=== PATIENT | female | born 1960 | race Caucasian/White ===

== ENCOUNTER → 2018-02-23 | Outpatient (CLI) | payer MEDICAID ==
[2018-02-23 14:56] LABS: T4, Free (Free Thyroxine) 0.79 ng/dL (0.78-2.19)
== END | disposition home or self-care (01) ==
LOC: LABWHC1 10:36
PROVIDERS: ATTEND Internal Medicine
DX: E89.0 Postprocedural hypothyroidism (principal)
CPT/HCPCS: 36415; 84439; 84443

== ENCOUNTER → 2018-02-28 | Outpatient (CLI) | payer MEDICAID ==
--- NOTE | 2018-03-01 14:31 | MM ---
Reason for exam: follow-up at short interval from prior study. Last mammogram was performed 13 years and 5 months ago. History: Patient has history of breast cancer at age 44 and has history of other cancer at age 44. Family history of premenopausal breast cancer in sister at age 48 and breast cancer in mother at age 68. Stereotactic core biopsy of the left breast, October 03, 2004. Malignant stereotactic core biopsy of the left breast, October 03, 2004. Malignant stereotactic core biopsy of the left breast, October 03, 2004. Lumpectomy of the left breast, 2004. Chemotherapy, 2004. Radiation therapy of the left breast, 2004. 3 core biopsies of the left breast. Took hormonal contraceptives for 24 years. Took antineoplastic for 5 years beginning at age 44. Physical Findings: Nurse did not find any significant physical abnormalities on exam. MG 3D Diag Mammo W/Cad RT CC and MLO view(s) were taken of the right breast. Prior study comparison: August 25, 2017, mammogram. August 24, 2016, mammogram. July 18, 2015, mammogram. There are scattered fibroglandular densities. Focal asymmetry central 6 o'clock appear more defined. Upper outer quadrant nodular focal asymmetry is also more defined though not well seen on CC view. Ultrasound recommended 5-7 o'clock upper outer quadrant. If not seen by ultrasound, stereotactic biopsy may be indicated, particularly of the 6 o'clock asymmetry. These results were verbally communicated with the patient and result sheet given to the patient on 02/28/18. ASSESSMENT: Incomplete: need additional imaging evaluation, BI-RAD 0 RECOMMENDATION: Ultrasound of the right breast. (5-7 o'clock and upper outer quadrant)
== END ==
LOC: RADMAMWWP 07:42
PROVIDERS: ATTEND Obstetrics & Gynecology
DX: R92.8 Other abnormal and inconclusive findings on diagnostic imaging of breast (principal)
CPT/HCPCS: 77061; 77065

== ENCOUNTER → 2018-03-02 | Day surgery (SDC) | payer MEDICAID ==
[2018-03-02 07:25] VITALS: RESP 16; BMI 41.9
[2018-03-02 09:53] VITALS: BP 120/84; PULSE 68; TEMP 97.6
--- NOTE | 2018-03-02 16:20 | USB ---
EXAMINATION TYPE: US biopsy breast VAD RT DATE OF EXAM: 03/02/2018 CLINICAL HISTORY: R92.8 abnormal mammogram. Abnormal ultrasound TECHNIQUE: Ultrasound guided core biopsy of right breast. COMPARISON: Ultrasound 03/01/2018 FINDINGS: The procedure of ultrasound guided core biopsy was explained to the patient. Benefits, alternatives, and risks were discussed. An informed consent was then obtained. A timeout was performed. The patient was placed in supine positioning for imaging and for the procedure. The overlying skin was prepped and draped in usual sterile fashion. The 11:00 position lesion was localized. Lidocaine buffered with bicarbonate was used as anesthetic into the skin and subcutaneous tissue up to area of concern in the right breast. A radha was made with surgical scalpel. Under ultrasound guidance, a 12-gauge vacuum assisted biopsy gun device was used to obtain 4 core samples. There appear to be collapse of the lesion with the first successful pass suggesting this may be a cyst. Additional biopsy passes were made. Following this, a coil biopsy clip was left in lesion. The patient was placed in supine positioning for imaging and for the procedure. The overlying skin was prepped and draped in usual sterile fashion. The 7:00 position lesion was localized. Lidocaine buffered with bicarbonate was used as anesthetic into the skin and subcutaneous tissue up to area of concern in the right breast. A radha was made with surgical scalpel. Under ultrasound guidance, a 12-gauge vacuum assisted biopsy gun device was used to obtain 4 core samples. There appear to be collapse of the lesion with the first successful pass suggesting this may be a cyst. Additional biopsy passes were made. Following this, a ribbon biopsy clip was left in lesion. The patient tolerated the procedure well without any immediate complication. Discharge instructions were discussed with the patient. The patient will follow- up with her surgeon for results. The patient was kept in the radiology department for short stay after the procedure and then discharged home in stable condition. Postprocedure mammogram was performed. Core marker placement appears as expected. IMPRESSION: 1. Successful ultrasound-guided core biopsy 2 locations. Recommendations: 1. Recommendations are pending pathology results. Pathology Results: Benign A. BREAST, RIGHT, ELEVEN O'CLOCK, ULTRASOUND GUIDED CORE BIOPSY: Fibrocystic changes including cysts, fibrosis and apocrine metaplasia. B. BREAST, RIGHT, SEVEN O'CLOCK, ULTRASOUND GUIDED CORE BIOPSY: Fibrocystic changes including cysts, fibrosis, sclerosing adenosis, apocrine metaplasia, and focal usual type ductal hyperplasia with adjacent foreign body reaction suggestive of duct rupture. Recommendation Follow up ultrasound of the right breast in 6 months. RUIZ
--- NOTE | 2018-03-02 16:21 | MM ---
EXAMINATION TYPE: US biopsy breast VAD RT DATE OF EXAM: 03/02/2018 CLINICAL HISTORY: R92.8 abnormal mammogram. Abnormal ultrasound TECHNIQUE: Ultrasound guided core biopsy of right breast. COMPARISON: Ultrasound 03/01/2018 FINDINGS: The procedure of ultrasound guided core biopsy was explained to the patient. Benefits, alt ernatives, and risks were discussed. An informed consent was then obtained. A timeout was performed. The patient was placed in supine positioning for imaging and for the procedure. The overlying skin w as prepped and draped in usual sterile fashion. The 11:00 position lesion was localized. Lidocaine b uffered with bicarbonate was used as anesthetic into the skin and subcutaneous tissue up to area of c oncern in the right breast. A radha was made with surgical scalpel. Under ultrasound guidance, a 12-gauge vacuum assisted biopsy gun device was used to obtain 4 core ying ples. There appear to be collapse of the lesion with the first successful pass suggesting this may b e a cyst. Additional biopsy passes were made. Following this, a coil biopsy clip was left in lesion. The patient was placed in supine positioning for imaging and for the procedure. The overlying skin w as prepped and draped in usual sterile fashion. The 7:00 position lesion was localized. Lidocaine bu ffered with bicarbonate was used as anesthetic into the skin and subcutaneous tissue up to area of co ncern in the right breast. A radha was made with surgical scalpel. Under ultrasound guidance, a 12-gauge vacuum assisted biopsy gun device was used to obtain 4 core ying ples. There appear to be collapse of the lesion with the first successful pass suggesting this may b e a cyst. Additional biopsy passes were made. Following this, a ribbon biopsy clip was left in lesion . The patient tolerated the procedure well without any immediate complication. Discharge instructions were discussed with the patient. The patient will follow-up with her surgeon for results. The patient was kept in the radiology department for short stay after the procedure and then discharged home in stable condition. Postprocedure mammogram was performed. Core marker placement appears as expected. IMPRESSION: 1. Successful ultrasound-guided core biopsy 2 locations. Recommendations: 1. Recommendations are pending pathology results.
== END | disposition home or self-care (01) ==
LOC: RADUSWWP 06:59
PROVIDERS: ATTEND Surgery
DX: N60.31 Fibrosclerosis of right breast (principal); N60.01 Solitary cyst of right breast; N60.21 Fibroadenosis of right breast; N60.81 Other benign mammary dysplasias of right breast; N60.91 Unspecified benign mammary dysplasia of right breast; Z85.3 Personal history of malignant neoplasm of breast; Z92.3 Personal history of irradiation; Z92.21 Personal history of antineoplastic chemotherapy
CPT/HCPCS: 88305; 77065; 19083; 19084; A4648; J2001

== ENCOUNTER → 2018-04-06 | Outpatient (CLI) | payer MEDICAID ==
[2018-04-06 19:36] LABS: T4, Free (Free Thyroxine) 1.5 ng/dL (0.80-1.80)
== END | disposition home or self-care (01) ==
LOC: LABWHC1 13:29
PROVIDERS: ATTEND Internal Medicine
DX: E89.0 Postprocedural hypothyroidism (principal)
CPT/HCPCS: 36415; 84439; 84443

== ENCOUNTER → 2018-09-22 | Outpatient (CLI) | payer MEDICAID ==
[2018-09-22 11:13] LABS: T4, Free (Free Thyroxine) 1.4 ng/dL (0.80-1.80)
[2018-09-22 11:22] LABS: Albumin 4.1 g/dL (3.80-4.90); Albumin/Globulin Ratio 2.28 (1.60-3.17); Anion Gap 15.5 mmol/L (4.00-12.00); Calcium 9.5 mg/dL (8.7-10.3); Carbon Dioxide 28.5 mmol/L (21.6-31.8); Globulin 1.8 g/dL (1.6-3.3); LDL Cholesterol,Calculated 92.4 mg/dL (0.0-131.0); Potassium 4.7 mmol/L (3.5-5.5); Total Bilirubin 0.6 mg/dL (0.2-1.2); Total Protein 5.9 g/dL (6.2-8.2); VLDL Calculation 28.6 mg/dL (5.00-40.00)
[2018-09-22 17:21] LABS: Thyroglobulin <0.20 ng/mL (1.60-59.90)
== END | disposition home or self-care (01) ==
LOC: LABWHC1 06:32
DX: C73 Malignant neoplasm of thyroid gland (principal); E78.5 Hyperlipidemia, unspecified; E89.0 Postprocedural hypothyroidism
CPT/HCPCS: 36415; 80053; 80061; 84432; 84439; 84443; 86800

== ENCOUNTER → 2018-09-22 | Outpatient (CLI) | payer MEDICAID ==
--- NOTE | 2018-09-22 09:47 | USB ---
Reason for exam: follow-up at short interval from prior study. History: Patient has history of breast cancer at age 44 and has history of other cancer at age 44. Family history of premenopausal breast cancer in sister at age 48 and breast cancer in mother at age 68. Benign US biopsy breast VAD RT of the right breast, March 02, 2018. Benign US biopsy breast add'l VAD RT of the right breast, March 02, 2018. Stereotactic core biopsy of the left breast, October 03, 2004. Malignant stereotactic core biopsy of the left breast, October 03, 2004. Malignant stereotactic core biopsy of the left breast, October 03, 2004. Lumpectomy of the left breast, 2004. Chemotherapy, 2004. Radiation therapy of the left breast, 2004. 3 core biopsies of the left breast. Took hormonal contraceptives for 24 years. Took antineoplastic for 5 years beginning at age 44. Physical Findings: Nurse did not find any significant physical abnormalities on exam. US Breast RT Right complete breast ultrasound includes all four quadrants, the retroareolar region and axilla. Finding demonstrates a 0.4 x 0.2 x 0.5cm lesion too small to characterize at 7 o'clock and a 0.3 x 0.3 x 1.0cm cystic cluster at 11 o'clock. These results were verbally communicated with the patient and result sheet given to the patient on 09/22/18. ASSESSMENT: Benign, BI-RAD 2 RECOMMENDATION: Follow-up diagnostic mammogram of both breasts. (due now) Ultrasound of the right breast in 6 months.
== END | disposition home or self-care (01) ==
LOC: RADUSWWP 06:54
PROVIDERS: ATTEND Surgery
DX: R92.8 Other abnormal and inconclusive findings on diagnostic imaging of breast (principal)

== ENCOUNTER → 2018-10-11 | Outpatient (CLI) | payer MEDICAID ==
--- NOTE | 2018-10-11 08:06 | MM ---
Reason for exam: additional evaluation requested from prior study. Last mammogram was performed 7 months ago. History: Patient is postmenopausal, has history of breast cancer at age 44, and has history of other cancer at age 44. Family history of premenopausal breast cancer in sister at age 48 and breast cancer in mother at age 68. Benign US biopsy breast VAD RT of the right breast, March 02, 2018. Benign US biopsy breast add'l VAD RT of the right breast, March 02, 2018. Stereotactic core biopsy of the left breast, October 03, 2004. Malignant stereotactic core biopsy of the left breast, October 03, 2004. Malignant stereotactic core biopsy of the left breast, October 03, 2004. Lumpectomy of the left breast, 2004. Chemotherapy, 2004. Radiation therapy of the left breast, 2004. 3 core biopsies of the left breast. Took hormonal contraceptives for 24 years. Took antineoplastic for 5 years beginning at age 44. Physical Findings: Nurse did not find any significant physical abnormalities on exam. MG 3D Diag Mammo W/Cad SHREYA Bilateral CC and MLO view(s) were taken. XCCL view(s) were taken of the left breast. Prior study comparison: March 02, 2018, right breast MG diagnostic mammo RT wo CAD. February 28, 2018, right breast MG 3d diag mammo w/cad RT. August 25, 2017, mammogram. August 24, 2016, mammogram. July 18, 2015, mammogram. The breast tissue is heterogeneously dense. This may lower the sensitivity of mammography. Benign appearing bilateral calcifications. Right biopsy markers noted. Left post therapy change. These results were verbally communicated with the patient and result sheet given to the patient on 10/11/18. ASSESSMENT: Benign, BI-RAD 2 RECOMMENDATION: Routine screening mammogram of both breasts in 1 year.
== END | disposition home or self-care (01) ==
LOC: RADMAMWWP 07:04
PROVIDERS: ATTEND Surgery
DX: R92.8 Other abnormal and inconclusive findings on diagnostic imaging of breast (principal)
CPT/HCPCS: 77062; 77066

== ENCOUNTER → 2018-12-22 | Outpatient (CLI) | payer MEDICAID ==
--- NOTE | 2018-12-22 10:00 | FL ---
EXAMINATION TYPE: FL barium swallow DATE OF EXAM: 12/22/2018 CLINICAL HISTORY: Dysphagia for approximately 1 year. History of thyroid carcinoma with thyroidectomy 14 years ago. The patient states she has reflux of solid foods. TECHNIQUE: A double contrast esophagram is performed utilizing air and barium. A total of 1 minute and 28 seconds of fluoroscopic time was utilized during procedure. 44 fluoroscopic images were saved. COMPARISON: None FINDINGS: There is an accumulation of contrast within an esophageal outpouching at the level of the l ower cervical spine. On imaging this appears posterior and midline and moderate in size. Accumulation of contrast is both on supine and prone imaging. The esophagus shows abnormal motility with tertiary contractions of the distal esophagus greater on upright and supine imaging. No distal esophageal str icture is seen and therefore findings likely relate to presbyesophagus. There is normal emptying into the stomach. No evidence of hiatal hernia noted. Mild gastroesophageal reflux was seen during real time performance of this study. IMPRESSION: 1. Moderate sized fingers diverticulum likely accounting for this patient's clinical symptoms. 2. Tertiary contractions of the distal esophagus most commonly related to presbyesophagus. 3. Mild gastroesophageal reflux.
== END | disposition home or self-care (01) ==
LOC: RADUSWWP 07:53
PROVIDERS: ATTEND Internal Medicine
DX: K21.9 Gastro-esophageal reflux disease without esophagitis (principal); K22.8 Other specified diseases of esophagus
CPT/HCPCS: 74220

== ENCOUNTER → 2019-01-05 | Outpatient (CLI) | payer MEDICAID ==
[2019-01-05 13:57] LABS: Basophils # (A) 0.1 k/uL (0-0.2); Basophils % (A) 1 %; Eosinophils # (A) 0.8 k/uL (0-0.7); Eosinophils % (A) 9 %; HGB 13.9 gm/dL (11.4-16.0); Lymphocytes # (A) 2.4 k/uL (1.0-4.8); Lymphocytes % (A) 27 %; MCH 28.3 pg (25.0-35.0); MCHC 31.6 g/dL (31.0-37.0); MCV 89.7 fL (80.0-100.0); Monocytes # (A) 0.4 k/uL (0-1.0); Monocytes % (A) 5 %; Neutrophils # (A) 4.9 k/uL (1.3-7.7); Neutrophils % (A) 55 %; Platelet Count 211 k/uL (150-450); RDW 14.4 % (11.5-15.5); WBC 8.8 k/uL (3.8-10.6)
[2019-01-05 17:55] LABS: African American GFR (CKD) 110.7 (60.0-200.0); Anion Gap 4.9 mmol/L (4.00-12.00); Calcium 9.4 mg/dL (8.7-10.3); Carbon Dioxide 29.1 mmol/L (21.6-31.8); Potassium 4.4 mmol/L (3.5-5.5)
== END | disposition home or self-care (01) ==
LOC: LABWHC1 13:07
PROVIDERS: ATTEND Internal Medicine
DX: E87.0 Hyperosmolality and hypernatremia (principal); E03.9 Hypothyroidism, unspecified
CPT/HCPCS: 36415; 80048; 85025

== ENCOUNTER → 2019-03-23 | Outpatient (CLI) | payer MEDICAID ==
[2019-03-23 17:46] LABS: Chol/HDL Ratio 3.92; LDL Cholesterol,Calculated 113.6 mg/dL (0.0-131.0); VLDL Calculation 29.4 mg/dL (5.00-40.00)
== END | disposition home or self-care (01) ==
LOC: LABWHC1 08:20
PROVIDERS: ATTEND Internal Medicine
DX: E78.5 Hyperlipidemia, unspecified (principal)
CPT/HCPCS: 36415; 80061

== ENCOUNTER → 2019-05-01 | Outpatient (CLI) | payer MEDICAID ==
[2019-05-01 17:46] LABS: Appearance,Urine Clear (Clear); Basophils # (A) 0.1 k/uL (0-0.2); Basophils % (A) 1 %; Bilirubin,Urine Negative (Negative); Blood,Urine Negative (Negative); Color,Urine Yellow; Eosinophils # (A) 0.7 k/uL (0-0.7); Eosinophils % (A) 8 %; Glucose,Urine (UA) Negative (Negative); HCT 39.9 % (34.0-46.0); HGB 13.1 gm/dL (11.4-16.0); Ketones,Urine Negative (Negative); Leukocyte Esterase,Urine Negative (Negative); Lymphocytes # (A) 1.8 k/uL (1.0-4.8); Lymphocytes % (A) 22 %; MCH 28.6 pg (25.0-35.0); MCHC 32.7 g/dL (31.0-37.0); MCV 87.3 fL (80.0-100.0); Monocytes # (A) 0.4 k/uL (0-1.0); Monocytes % (A) 5 %; Neutrophils # (A) 5.2 k/uL (1.3-7.7); Neutrophils % (A) 63 %; Nitrite,Urine Negative (Negative); Platelet Count 205 k/uL (150-450); Protein,Urine Negative (Negative); RBC 4.57 m/uL (3.80-5.40); RDW 13.1 % (11.5-15.5); Specific Gravity,Urine 1.019 (1.001-1.035); Urobilinogen,Urine <2.0 mg/dL (<2.0); WBC 8.4 k/uL (3.8-10.6)
[2019-05-02 01:46] LABS: African American GFR (CKD) 116.4 (60.0-200.0); Albumin 3.9 g/dL (3.80-4.90); Albumin/Globulin Ratio 2.05 (1.60-3.17); Anion Gap 8.9 mmol/L (4.00-12.00); BUN/Creat Ratio 28.33 Ratio (12.00-20.00); Calcium 9.2 mg/dL (8.7-10.3); Carbon Dioxide 26.1 mmol/L (21.6-31.8); Globulin 1.9 g/dL (1.6-3.3); Potassium 4.5 mmol/L (3.5-5.5); Total Bilirubin 0.3 mg/dL (0.2-1.2); Total Protein 5.8 g/dL (6.2-8.2)
== END | disposition home or self-care (01) ==
LOC: LABWHC1 16:42
PROVIDERS: ATTEND Internal Medicine
DX: M62.81 Muscle weakness (generalized) (principal)
CPT/HCPCS: 36415; 80053; 81003; 82550; 84443; 85025

== ENCOUNTER → 2019-08-17 | Outpatient (CLI) | payer MEDICAID ==
--- NOTE | 2019-08-18 07:36 | XR ---
EXAMINATION TYPE: XR pelvis AP view DATE OF EXAM: 08/17/2019 CLINICAL HISTORY: Low back pain and pelvic pain TECHNIQUE: A single AP view of the pelvis is obtained. COMPARISON: None. FINDINGS: There is no acute fracture/dislocation evident in the pelvis. The hip and sacroiliac join ts appear symmetric and aligned. Mild femoral acetabular arthropathy with acetabular sclerosis bilat erally. The overlying soft tissue appears unremarkable. IMPRESSION: There is no acute fracture or dislocation in the pelvis. Mild arthropathy of the hips.
--- NOTE | 2019-08-18 07:38 | XR ---
EXAMINATION TYPE: XR spine complete AP and Lat DATE OF EXAM: 08/17/2019 COMPARISON: NONE HISTORY: Acute on chronic neck pain TECHNIQUE: Frontal and lateral views of the cervical spine were obtained FINDINGS: There is grade 1 anterolisthesis of C2 on C3 and minimal retrolisthesis of C4 and C5 and C5 on C6. Multilevel intervertebral disc space narrowing is seen with anterior osteophytes and multilev el uncovertebral hypertrophy. No abnormal prevertebral soft tissue swelling. Vertebral body heights a re maintained. No acute fracture identified. There is straightening of usual cervical lordosis. IMPRESSION: 1. No acute fracture of the cervical spine is seen. 2. Grade 1 anterolisthesis of C2 on C3 and minimal retrolisthesis of C4 and C5 and C5 and C6 are like ly on a degenerative basis. Overall moderate multilevel degenerative disc disease of the cervical spi ne. 3. Straightening of usual cervical lordosis could be on the basis of muscular strain/spasm or patient positioning.
== END | disposition home or self-care (01) ==
LOC: RAD 17:44
PROVIDERS: ATTEND Chiropractor
DX: M43.12 Spondylolisthesis, cervical region (principal); M50.30 Other cervical disc degeneration, unspecified cervical region; M12.852 Other specific arthropathies, not elsewhere classified, left hip; M12.851 Other specific arthropathies, not elsewhere classified, right hip
CPT/HCPCS: 72082; 72170

== ENCOUNTER 2019-08-21 09:15 | Emergency (ER) | payer MEDICAID ==
[2019-08-21] MEDS ORDERED: KETOROLAC 30 MG/ML 1 ML VIAL IM STA (09:40)
--- NOTE | 2019-08-21 09:45 | ED ---
General Adult HPI - General Chief complaint: Extremity Injury, Upper Stated complaint: fall, collar bone pain Time Seen by Provider: 08/21/19 09:22 Source: patient Mode of arrival: ambulatory Limitations: no limitations - History of Present Illness Initial comments: Patient is a 59-year-old female presenting to emergency Department with a chief complaint of clavicle pain. Patient states yesterday she was cleaning and standing on a chair when she lost balance due to her back pain and fall of the left side of her body. Patient denies any head trauma loss of consciousness. States she has pain in the left clavicle region. States there is some swelling in the region but denies any bony deformities. Denies any skin discoloration in the region as well. Also reports pain in the left shoulder with limited range of motion above 90 or pain. Does report taking aspirin with minimal improvement symptoms. She did have left rotator cuff surgery. Denies any numbness or tingling. Patient has no other complaints. - Related Data Home Medications Medication Instructions Recorded Confirmed Cetirizine HCl [Zyrtec] 10 mg PO DAILY 03/01/18 03/02/18 Cholecalciferol (Vitamin D3) 2,000 unit PO DAILY 03/01/18 03/02/18 [Vitamin D3] DULoxetine HCL [Cymbalta] 40 mg PO DAILY 03/01/18 03/02/18 Levothyroxine Sodium [Synthroid] 200 mcg PO DAILY 03/01/18 03/02/18 Magnesium 200 mg PO DAILY 03/01/18 03/02/18 LORazepam [Ativan] 1 mg PO TID PRN 03/02/18 03/02/18 Allergies Allergy/AdvReac Type Severity Reaction Status Date / Time levofloxacin [From Levaquin] AdvReac Confusion Verified 08/21/19 09:21 Review of Systems ROS Statement: Those systems with pertinent positive or pertinent negative responses have been documented in the HPI. ROS Other: All systems not noted in ROS Statement are negative. Past Medical History Past Medical History: Cancer Additional Past Medical History / Comment(s): Hx. left breast cancer, thyroid cancer both age 44 History of Any Multi-Drug Resistant Organisms: None Reported Past Surgical History: Breast Surgery, Section, Orthopedic Surgery, Tonsillectomy Additional Past Surgical History / Comment(s): Left breast lumpectomy, thyroidectomy l rotator cuff and l ankle Past Anesthesia/Blood Transfusion Reactions: No Reported Reaction Past Psychological History: Depression Smoking Status: Former smoker Past Alcohol Use History: None Reported Past Drug Use History: None Reported General Exam Limitations: no limitations General appearance: alert, in no apparent distress Head exam: Present: atraumatic, normocephalic, normal inspection Eye exam: Present: normal appearance, PERRL, EOMI Pupils: Present: normal accommodation ENT exam: Present: normal exam Neck exam: Present: normal inspection Respiratory exam: Present: normal lung sounds bilaterally, other (Mild, left midclavicular swelling) Cardiovascular Exam: Present: regular rate, normal rhythm, normal heart sounds Extremities exam: Present: normal inspection, full ROM (Full range of passive motion. Active range of motion limiting with abduction above 90. No palpable bony deformities.), tenderness (Mild anterior left deltoid pain.), normal capillary refill, other (+2 ulnar and radial pulses bilaterally. Equal sensation in bilateral upper extremities) Back exam: Present: normal inspection, full ROM Neurological exam: Present: alert, oriented X3, CN II-XII intact, normal gait Psychiatric exam: Present: normal affect, normal mood Skin exam: Present: warm, dry, intact, normal color Course Vital Signs 08/21/19 09:18 Temperature 98.2 F Pulse Rate 79 Respiratory 18 Rate Blood Pressure 145/91 O2 Sat by Pulse 98 Oximetry Medical Decision Making - Medical Decision Making Patient is a 59-year-old female presenting to the emergency room with a chief complaint of clavicle pain. On exam not bone deformities or skin tenting noted. Swelling in the mid clavicular region noted. Full passive range of motion in the left shoulder. Limited active range of motion above 90 with abduction. Patient was given Toradol in the ED. No numbness or tingling. No head trauma or loss of consciousness. No blood thinners. X-ray shows osteoarthritis but no acute fracture or dislocations to the left clavicle or shoulder region. Patient vised to follow-up with orthopedics if symptoms not improved. Return parameters thoroughly discussed the patient was understanding and agreeable. Patient was offered a sling but she declined. Case discussed with physician. Disposition Clinical Impression: Left shoulder pain, Osteoarthritis, Fall Disposition: HOME SELF-CARE Condition: Stable Instructions (If sedation given, give patient instructions): Shoulder Sprain (ED) Additional Instructions: Follow-up with correctional treatment specialist. Return to emergency department if symptoms worsen. Apply ice compresses alternate between Tylenol and Motrin for pain control. Is patient prescribed a controlled substance at d/c from ED?: No Referrals: Erik Adrian MD [Primary Care Provider] - 1-2 days Dameon Lew MD [STAFF PHYSICIAN] - 1-2 days Time of Disposition: 10:37
--- NOTE | 2019-08-21 10:09 | XR ---
Left shoulder and left clavicle HISTORY: Trauma and pain 2 views of the left clavicle and 3 views of the left shoulder Arthropathy changes present at the acromioclavicular joint. Left shoulder is high riding. There is ar thropathy at the glenohumeral joint, hypertrophic changes present humeral head, subchondral sclerosis at the acromion. Small ossific densities present posterior to the humeral head, consider synovial os teochondromatosis. Left lung apex as visualized is normal. IMPRESSION: No fracture or dislocation is evident. Osteoarthritis.
[2019-08-21 10:43] VITALS: BP 138/92; PULSE 63; RESP 16; TEMP 97.1
== END 2019-08-21 10:39 | disposition home or self-care (01) ==
LOC: EC 09:15
DX: M19.012 Primary osteoarthritis, left shoulder (principal); F32.9 Major depressive disorder, single episode, unspecified; Z79.890 Hormone replacement therapy; Z79.899 Other long term (current) drug therapy; Z88.1 Allergy status to other antibiotic agents; Z87.891 Personal history of nicotine dependence; Z85.850 Personal history of malignant neoplasm of thyroid; Z85.3 Personal history of malignant neoplasm of breast; W07.XXXA Fall from chair, initial encounter
CPT/HCPCS: 73030; 73000; 99283; 96372; J1885

== ENCOUNTER → 2019-11-08 | Outpatient (CLI) | payer MEDICAID | END | disposition home or self-care (01) | LOC: LABWHC1 13:05 | PROVIDERS: ATTEND Surgery | DX: Z11.59 Encounter for screening for other viral diseases (principal) ==

== ENCOUNTER 2019-11-10 08:32 | Day surgery (SDC) | payer MEDICAID ==
[2019-11-08 10:41] VITALS: BMI 34.2
[~2019-11-10 08:32] MED LIST: LACTATED RINGERS 1,000 ML IV SCH
[2019-11-10] MEDS ORDERED: LIDOCAINE 1% (10MG/ML) FOR IV START INTRADERMA ONE (09:16)
[2019-11-10 09:21] VITALS: TEMP 96.9
[2019-11-10] MEDS ORDERED: PROPOFOL 10 MG/ML 20 ML VIAL IV ONE (09:23)
[2019-11-10] MEDS ORDERED: fentaNYL (PF) 50 MCG/ML 2 ML AMP ONE (09:23)
[2019-11-10] MEDS ORDERED: MIDAZOLAM 2 MG/2 ML VIAL ONE (09:23)
--- NOTE | 2019-11-10 09:29 | P.GSHP ---
History of Present Illness H&P Date: 11/10/19 Chief Complaint: Dysphagia, polyps Patient here today for upper endoscopy and lower endoscopy. Patient has had complaints of dysphagia. Had a recent barium swallow showing a Zenker's diverticulum. Some presbyesophagus as well. Last colonoscopy 4 years ago. He had a polyp at that time. Complaining of hemorrhoids or itching. Very rare episodes of bleeding. No previous hemorrhoid intervention. - Review of Systems Comment: The patient denies any acute changes in vision or hearing, no dysphagia or odynophagia, no chest pain or shortness of breath, no dysuria or hematuria, no headache, no runny nose, a, no unexplained weight loss Past Medical History Past Medical History: Cancer Additional Past Medical History / Comment(s): Hx. left breast cancer, thyroid cancer both age 44 History of Any Multi-Drug Resistant Organisms: None Reported Past Surgical History: Breast Surgery, Section, Orthopedic Surgery, Tonsillectomy Additional Past Surgical History / Comment(s): Left breast lumpectomy, thyroidectomy l rotator cuff and l ankle Past Anesthesia/Blood Transfusion Reactions: No Reported Reaction Past Alcohol Use History: None Reported - Past Family History Mother Family Medical History: Cancer Father Family Medical History: Cancer Sister(s) Family Medical History: Cancer Medications and Allergies Home Medications Medication Instructions Recorded Confirmed Type Cholecalciferol (Vitamin D3) 2,000 unit PO DAILY 03/01/18 11/10/19 History [Vitamin D3] Levothyroxine Sodium [Synthroid] 200 mcg PO DAILY 03/01/18 11/10/19 History Magnesium 200 mg PO DAILY 03/01/18 11/10/19 History LORazepam [Ativan] 1 mg PO TID PRN 03/02/18 11/10/19 History Loratadine [Claritin] 10 mg PO DAILY 11/08/19 11/10/19 History buPROPion HCL [Wellbutrin SR] 200 mg PO BID 11/08/19 11/10/19 History Allergies Allergy/AdvReac Type Severity Reaction Status Date / Time levofloxacin [From Levaquin] AdvReac Confusion Verified 11/10/19 09:07 Surgical - Exam Vital Signs Temp Pulse Resp BP Pulse Ox 96.9 F L 64 16 125/72 98 11/10/19 09:15 11/10/19 09:15 11/10/19 09:15 11/10/19 09:15 11/10/19 09:15 Physical exam: General: Well-developed, well-nourished HEENT: Normocephalic, sclerae nonicteric Abdomen: Nontender, nondistended Extremities: No edema Neuro: Alert and oriented Assessment and Plan (1) Dysphagia Narrative/Plan: Will proceed with upper and lower endoscopy Current Visit: Yes Status: Acute Code(s): R13.10 - DYSPHAGIA, UNSPECIFIED SNOMED Code(s): 91836138
--- NOTE | 2019-11-10 10:00 | P.PCN ---
Date of Procedure: 11/10/19 Procedure(s) Performed: PREOPERATIVE DIAGNOSIS: Dysphagia, hemorrhoids, history of polyps POSTOPERATIVE DIAGNOSIS: Zenker's diverticulum, mild gastritis, diverticulosis, internal and external hemorrhoids PROCEDURE: 1. EGD with biopsy 2. Colonoscopy ANESTHESIA: [facility] [place]GEON: Antwon Thomson M.D. SPECIMENS: Antrum ENDOSCOPIC PROCEDURE: The patient was on the endoscopy table in the left decubitus position. The Olympus gastroscope was inserted into the oropharynx and passed under direct visualization to the region of the third portion of the duodenum. From that point the scope was slowly withdrawn inspecting all surfaces carefully. There were no neoplastic inflammatory or polypoid lesions throughout the duodenum. The pylorus was widely patent. The stomach was carefully inspected. There was minimal gastritis present. A biopsy of the antrum took place to rule out H. pylori. Retroflexion revealed a normal hiatus. The esophagus was then carefully examined. There were no neoplastic inflammatory or polypoid lesions throughout the visualized esophagus. At the proximal esophagus a small to moderate sized diverticulum was identified. No inflammatory changes were noted. The patient was kept on the endoscopy table in the left decubitus position. The Olympus colonoscope was inserted into the anus and passed under direct visualization to the base of the cecum. The appendiceal orifice was visualized. From that point the scope was slowly withdrawn inspecting all surfaces carefully. There were no neoplastic inflammatory or polypoid lesions throughout the cecum, ascending, transverse, descending, sigmoid and rectum. There was mild left-sided diverticulosis noted. Digital rectal examination revealed small internal and external hemorrhoids. No evidence of active inflammation or recent bleeding. The patient was taken to the recovery room in stable condition per anesthesia guidelines. RECOMMENDATIONS: Increase fiber. Await biopsy results. Follow colonoscopy in 5 years.
[2019-11-10 10:16] VITALS: PULSE 60
[2019-11-10 10:33] VITALS: BP 114/68; RESP 18
== END 2019-11-10 10:45 | disposition home or self-care (01) ==
LOC: ORWHC2ENDO 08:32
PROVIDERS: ATTEND Surgery
DX: K29.70 Gastritis, unspecified, without bleeding (principal); K22.5 Diverticulum of esophagus, acquired; K57.30 Diverticulosis of large intestine without perforation or abscess without bleeding; K64.4 Residual hemorrhoidal skin tags; K64.8 Other hemorrhoids; Z86.010 Personal history of colon polyps; F41.9 Anxiety disorder, unspecified; F32.9 Major depressive disorder, single episode, unspecified; E66.9 Obesity, unspecified; Z88.1 Allergy status to other antibiotic agents; Z87.891 Personal history of nicotine dependence; Z68.34 Body mass index [BMI] 34.0-34.9, adult; Z85.3 Personal history of malignant neoplasm of breast; Z85.850 Personal history of malignant neoplasm of thyroid; Z90.89 Acquired absence of other organs; Z79.890 Hormone replacement therapy; Z79.899 Other long term (current) drug therapy; Z98.890 Other specified postprocedural states; Z80.9 Family history of malignant neoplasm, unspecified
CPT/HCPCS: 88305; 45378; 43239; J2250; J3010; J2704

== ENCOUNTER → 2019-11-23 | Outpatient (CLI) | payer MEDICAID ==
[2019-11-23 08:09] LABS: Basophils # (A) 0.1 k/uL (0-0.2); Basophils % (A) 1 %; Eosinophils # (A) 0.9 k/uL (0-0.7); Eosinophils % (A) 14 %; HCT 43.3 % (34.0-46.0); HGB 14.5 gm/dL (11.4-16.0); Lymphocytes # (A) 1.5 k/uL (1.0-4.8); Lymphocytes % (A) 23 %; MCH 29.7 pg (25.0-35.0); MCHC 33.5 g/dL (31.0-37.0); MCV 88.7 fL (80.0-100.0); Mean Platelet Volume 8.1; Monocytes # (A) 0.4 k/uL (0-1.0); Monocytes % (A) 6 %; Neutrophils # (A) 3.5 k/uL (1.3-7.7); Neutrophils % (A) 54 %; Platelet Count 174 k/uL (150-450); RBC 4.88 m/uL (3.80-5.40); WBC 6.5 k/uL (3.8-10.6)
[2019-11-23 16:43] LABS: ALT 18 U/L (8-44); AST 18 U/L (13-35); African American GFR (CKD) 93.5 (60.0-200.0); Albumin/Globulin Ratio 2.11 (1.60-3.17); Alkaline Phosphatase 62 U/L (41-126); BUN/Creat Ratio 28.75 Ratio (12.00-20.00); Bilirubin, Conjugated <0.20 mg/dL (0.20-0.40); Calcium 9.5 mg/dL (8.7-10.3); Carbon Dioxide 28.8 mmol/L (21.6-31.8); Chloride 107 mmol/L (96-109); Globulin 1.9 g/dL (1.6-3.3); Glucose 86 mg/dL (70-110); Non-African American GFR(CKD) 80.7 (60.0-200.0); Potassium 4.5 mmol/L (3.5-5.5); Sodium 141 mmol/L (135-145); Total Bilirubin 0.3 mg/dL (0.2-1.2); Total Protein 5.9 g/dL (6.2-8.2)
== END | disposition home or self-care (01) ==
LOC: LABWHC1 07:18
PROVIDERS: ATTEND Internal Medicine
DX: E03.9 Hypothyroidism, unspecified (principal); F32.9 Major depressive disorder, single episode, unspecified
CPT/HCPCS: 36415; 80053; 82248; 84443; 85025

== ENCOUNTER → 2019-12-13 | Outpatient (CLI) | payer MEDICAID ==
--- NOTE | 2019-12-13 11:00 | MM ---
Reason for exam: screening (asymptomatic). Last mammogram was performed 1 year and 2 months ago. History: Patient is postmenopausal, has history of breast cancer at age 44, and has history of other cancer at age 44. Family history of premenopausal breast cancer in sister at age 48 and breast cancer in mother at age 68. Benign US biopsy breast VAD RT of the right breast, March 02, 2018. Benign US biopsy breast add'l VAD RT of the right breast, March 02, 2018. Stereotactic core biopsy of the left breast, October 03, 2004. Malignant stereotactic core biopsy of the left breast, October 03, 2004. Malignant stereotactic core biopsy of the left breast, October 03, 2004. Lumpectomy of the left breast, 2004. Chemotherapy, 2004. Radiation therapy of the left breast, 2004. 3 core biopsies of the left breast. Took hormonal contraceptives for 24 years. Took antineoplastic for 5 years beginning at age 44. Physical Findings: A clinical breast exam by your physician is recommended on an annual basis and results should be correlated with mammographic findings. MG 3D Screening Mammo W/Cad Bilateral CC and MLO view(s) were taken. Prior study comparison: October 11, 2018, bilateral MG 3d diag mammo w/cad SHREYA. March 02, 2018, right breast MG diagnostic mammo RT wo CAD. February 28, 2018, right breast MG 3d diag mammo w/cad RT. August 25, 2017, mammogram. August 24, 2016, mammogram. There are scattered fibroglandular densities. No significant changes when compared with prior studies. ASSESSMENT: Benign, BI-RAD 2 RECOMMENDATION: Routine screening mammogram of both breasts in 1 year.
== END | disposition home or self-care (01) ==
LOC: RADMAMWWP 07:15
PROVIDERS: ATTEND Obstetrics & Gynecology
DX: Z12.31 Encounter for screening mammogram for malignant neoplasm of breast (principal)
CPT/HCPCS: 77063; 77067

== ENCOUNTER → 2020-01-04 | Outpatient (CLI) | payer MEDICAID | END | disposition home or self-care (01) | LOC: LABWHC1 07:29 | PROVIDERS: ATTEND Family Medicine | DX: E03.9 Hypothyroidism, unspecified (principal) | CPT/HCPCS: 36415; 84443 ==

== ENCOUNTER → 2020-03-06 | Outpatient (CLI) | payer MEDICAID ==
[2020-03-06 18:46] LABS: Cancer Antigen 125 7.3 U/mL (0.0-30.1)
== END | disposition home or self-care (01) ==
LOC: LABWHC1 07:48
PROVIDERS: ATTEND Internal Medicine
DX: C50.919 Malignant neoplasm of unspecified site of unspecified female breast (principal); E03.9 Hypothyroidism, unspecified
CPT/HCPCS: 36415; 84443; 86304

== ENCOUNTER → 2020-06-10 | Outpatient (CLI) | payer MEDICAID ==
[2020-06-10 12:52] LABS: Basophils # (A) 0.1 k/uL (0-0.2); Basophils % (A) 1 %; Eosinophils # (A) 0.7 k/uL (0-0.7); Eosinophils % (A) 10 %; HCT 42.8 % (34.0-46.0); HGB 14.4 gm/dL (11.4-16.0); Lymphocytes # (A) 1.8 k/uL (1.0-4.8); Lymphocytes % (A) 27 %; MCH 29.3 pg (25.0-35.0); MCHC 33.5 g/dL (31.0-37.0); MCV 87.5 fL (80.0-100.0); Mean Platelet Volume 7.8; Monocytes # (A) 0.4 k/uL (0-1.0); Monocytes % (A) 6 %; Neutrophils # (A) 3.6 k/uL (1.3-7.7); Neutrophils % (A) 53 %; Platelet Count 166 k/uL (150-450); RDW 12.7 % (11.5-15.5); WBC 6.9 k/uL (3.8-10.6)
[2020-06-10 20:34] LABS: African American GFR (CKD) 109.1 (60.0-200.0); Albumin 4.1 g/dL (3.80-4.90); Albumin/Globulin Ratio 2.28 (1.60-3.17); Anion Gap 1.8 mmol/L (4.00-12.00); BUN/Creat Ratio 21.43 Ratio (12.00-20.00); Calcium 9.4 mg/dL (8.7-10.3); Carbon Dioxide 31.2 mmol/L (21.6-31.8); Chol/HDL Ratio 3.62; Globulin 1.8 g/dL (1.6-3.3); LDL Cholesterol,Calculated 113.2 mg/dL (0.0-131.0); Non-African American GFR(CKD) 94.2 (60.0-200.0); Potassium 4.7 mmol/L (3.5-5.5); Total Bilirubin 0.4 mg/dL (0.3-1.2); Total Protein 5.9 g/dL (6.2-8.2); VLDL Calculation 22.8 mg/dL (5.00-40.00)
== END | disposition home or self-care (01) ==
LOC: LABWHC1 11:39
PROVIDERS: ATTEND Internal Medicine
DX: Z00.00 Encounter for general adult medical examination without abnormal findings (principal); E03.9 Hypothyroidism, unspecified
CPT/HCPCS: 36415; 80053; 80061; 84443; 85025

== ENCOUNTER → 2020-11-14 | Outpatient (CLI) | payer MEDICAID ==
--- NOTE | 2020-11-14 22:35 | CONS ---
CONSULTATION DATE OF SERVICE: 11/14/2020 60-year-old lady has been evaluated in Sleep Center for obstructive sleep apnea- hypopnea. HISTORY OF PRESENT ILLNESS/SLEEP WAKE EVALUATION: The patient has a history of obstructive sleep apnea for about 7 years ago, she was evaluated in our Sleep Center and continued to use his CPAP equipment all those years. SLEEP SCHEDULE: Her sleep schedule from 9:30 p.m. until 6:30 a.m. on weekdays and from 11 p.m. until 7:30 on weekends. FALLING ASLEEP: No problems with falling asleep, although she has a TV set in bedroom. DURING SLEEP: She sleeps on the back and stomach position. She does not snore with the machine and does not wake up from sleep at all while using her machine. May although have episodes of dry mouth and restless legs. DURING THE DAY/SLEEP WAKE EVALUATION: During the day, she may have difficulties with paying attention, memory, concentration, depression, anxiety and claustrophobia. [place] Sleepiness Scale is 6 which is in normal range. I checked the patient's CPAP unit is in automatic regimen. Range of the pressure 5-15, average pressure 9.5, usage 28/30 nights for more than 4 hours with average usage is 7.1 hours per night. Leak is 18 L/minutes which is borderline. Apnea-hypopnea index is 1.6, which is perfect. PAST MEDICAL HISTORY: Positive for breast CA, thyroid CA, depression, anxiety. PAST SURGICAL HISTORY: Partial mastectomy, chemotherapy and radiation therapy on the left side and thyroidectomy, tonsillectomy. MEDICATIONS: Citalopram 5 mg once a day, levothyroxine 175 mcg 5 days a week, levothyroxine 0.2 mcg for 2 days a week, Bupropion SR 200 mg once a day. Xanax 0.25 mg on p.r.n. basis. SOCIAL HISTORY: Negative for smoking or using alcohol. REVIEW OF SYSTEMS: Basically negative. No chest pain. No shortness of breath. No blood in stool. No blood in urine. No headaches at the present time. PHYSICAL EXAMINATION: GENERAL: lady without distress. BP 132/77, HR 69, RR 12, height 5 foot 6 inches, weight 220 pounds, body mass index 35.3, temperature 97.3, oxygen saturation 96%. HEENT: PERRLA, EOMI, evaluation of oropharynx showed tongue protrudes midline. NECK: Supple, no JVD. Thyroid is not palpable. LUNGS: Clear to percussion and to auscultation. Good air exchange. No wheezing or rhonchi. HEART: S1, S2 regular. No murmurs, gallops, or rubs. ABDOMEN: Soft and nontender. Bowel sounds are present. No organomegaly appreciated. EXTREMITIES: No clubbing or cyanosis. INSULATION BOARD BACK TENDER: Awake, alert, and oriented X3. Cranial nerves 2 to 7 intact. There is no fasciculation or atrophy. noted. No focal deficits observed. IMPRESSION: 1. Obstructive sleep apnea-hypopnea syndrome for about 7 years. The patient continues to use her CPAP equipment every night for the whole night, benefitting from treatment. 2. Obesity BMI 35.3. 3. History of left breast carcinoma, status post partial mastectomy, chemotherapy and radiation therapy. 4. History of thyroid carcinoma, status post thyroidectomy and treatment with radioactive iodine. 5. History of depression. 6. History of anxiety. 7. Status post tonsillectomy. PLAN: 1. Prescription for all necessary CPAP supplies including AirFit and 20 medium size nasal mask, tube filters. 2. Patient should continue to use her CPAP equipment every night for the whole night. 3. Watching and losing weight. 4. Sleep hygiene with regular time bed for 7-1/2 to 8 hours. 5. No driving if feeling sleepiness. 6. Follow-up visit in 6 months or earlier if patient has any problems. Thank you very much for referring the patient for reevaluation. Sincerely, Hoang Guzmán MD, PhD, FAASM Diplomat of [place] [employer] [place] [employer] Network Technical Analyst of [facility] [place] MMODL / IJN: [id number] /
== END ==
LOC: SLEEP 16:36
PROVIDERS: ATTEND Internal Medicine
DX: G47.33 Obstructive sleep apnea (adult) (pediatric) (principal); E66.9 Obesity, unspecified; F32.9 Major depressive disorder, single episode, unspecified; F41.9 Anxiety disorder, unspecified; Z85.3 Personal history of malignant neoplasm of breast; Z90.12 Acquired absence of left breast and nipple; Z99.81 Dependence on supplemental oxygen; Z92.21 Personal history of antineoplastic chemotherapy; Z85.850 Personal history of malignant neoplasm of thyroid; Z90.09 Acquired absence of other part of head and neck; Z92.3 Personal history of irradiation; Z68.35 Body mass index [BMI] 35.0-35.9, adult; Z88.1 Allergy status to other antibiotic agents; Z87.891 Personal history of nicotine dependence
CPT/HCPCS: 99211

== ENCOUNTER → 2020-11-21 | Outpatient (CLI) | payer MEDICAID ==
[2020-11-21 15:56] LABS: HCT 43.2 % (37.2-46.3); HGB 12.6 g/dL (12.0-15.0); MCH 24.6 pg (27.0-32.0); MCHC 29.2 g/dL (32.0-37.0); MCV 84.4 fL (80.0-97.0); Mean Platelet Volume 12.1 fL (9.5-12.2); Platelet Count 240 X 10*3/uL (140-440); RBC 5.12 X 10*6/uL (4.10-5.20); RDW 15.2 % (11.5-14.5)
[2020-11-21 18:32] LABS: African American GFR (CKD) 92.9 (60.0-200.0); Albumin 4.2 g/dL (3.80-4.90); Albumin/Globulin Ratio 1.91 (1.60-3.17); BUN/Creat Ratio 16.25 Ratio (12.00-20.00); Chol/HDL Ratio 4.45; Globulin 2.2 g/dL (1.6-3.3); LDL Cholesterol,Calculated 119.8 mg/dL (0.0-131.0); Non-African American GFR(CKD) 80.1 (60.0-200.0); Potassium 4.6 mmol/L (3.5-5.5); Total Bilirubin 0.3 mg/dL (0.3-1.2); Total Protein 6.4 g/dL (6.2-8.2); VLDL Calculation 25.2 mg/dL (5.00-40.00)
== END | disposition home or self-care (01) ==
LOC: LABWHC1 08:06
PROVIDERS: ATTEND Internal Medicine
DX: E03.9 Hypothyroidism, unspecified (principal); E78.5 Hyperlipidemia, unspecified; F32.9 Major depressive disorder, single episode, unspecified
CPT/HCPCS: 36415; 80053; 80061; 84443; 85027

== ENCOUNTER → 2020-12-13 | Outpatient (CLI) | payer MEDICAID ==
--- NOTE | 2020-12-18 14:43 | MM ---
Reason for exam: screening (asymptomatic). Last mammogram was performed 1 year ago. History: Patient is postmenopausal, has history of breast cancer at age 44, and has history of other cancer at age 44. Family history of premenopausal breast cancer in sister at age 48 and breast cancer in mother at age 68. Benign US biopsy breast VAD RT of the right breast, March 02, 2018. Benign US biopsy breast add'l VAD RT of the right breast, March 02, 2018. Stereotactic core biopsy of the left breast, October 03, 2004. Malignant stereotactic core biopsy of the left breast, October 03, 2004. Malignant stereotactic core biopsy of the left breast, October 03, 2004. Lumpectomy of the left breast, 2004. Chemotherapy, 2004. Radiation therapy of the left breast, 2004. 3 core biopsies of the left breast. Took hormonal contraceptives for 24 years. Took antineoplastic for 5 years beginning at age 44. Physical Findings: A clinical breast exam by your physician is recommended on an annual basis and results should be correlated with mammographic findings. MG 3D Screening Mammo W/Cad Bilateral CC and MLO view(s) were taken. Prior study comparison: December 13, 2019, bilateral MG 3d screening mammo w/cad. October 11, 2018, bilateral MG 3d diag mammo w/cad SHREYA. There are scattered fibroglandular densities. Previous mammotome biopsy in the right breast x 2. Benign round oil cyst calcifications. Post surgical change left breast. No significant changes when compared with prior studies. ASSESSMENT: Benign, BI-RAD 2 RECOMMENDATION: Routine screening mammogram of both breasts in 1 year.
== END | disposition home or self-care (01) ==
LOC: RADMAMWWP 06:59
PROVIDERS: ATTEND Obstetrics & Gynecology
DX: Z12.31 Encounter for screening mammogram for malignant neoplasm of breast (principal); Z78.0 Asymptomatic menopausal state; Z85.3 Personal history of malignant neoplasm of breast; Z80.3 Family history of malignant neoplasm of breast
CPT/HCPCS: 77063; 77067

== ENCOUNTER → 2021-05-22 | Outpatient (CLI) | payer MEDICAID ==
--- NOTE | 2021-05-23 06:08 | SFUN ---
SLEEP CENTER FOLLOW UP NOTE DATE OF SERVICE: 05/22/2021 61-year-old lady has been followed in Sleep Center for treatment of obstructive sleep apnea-hypopnea syndrome. Patient continues to use her CPAP equipment every night for the whole night getting her supplies in time. No problems with the machine. No snoring. [place] Sleepiness Scale is 9 which is in normal range. I checked her CPAP unit. Range of the pressure 5-15, average pressure 10.5. Air filter in bad condition, needs to be replaced. Usage is 28/30 nights for more than 4 hours, average 7.2 hours per night. Leak is 19 L/minute which is borderline. Apnea-hypopnea index only 1.1 which is perfect. MEDICATIONS: Escitalopram 5 mg once a day, bupropion 300 mg once a day, levothyroxine 175 mcg once a day, Claritin 10 mg once a day. PHYSICAL EXAMINATION: GENERAL: Patient in no distress. BP 134/84, HR 70, RR 15, height 5 feet 6 inches, weight 219, body mass index 35.3, temperature 97.8, oxygen saturation at room air 98%. HEENT: PERRLA, EOMI, evaluation of oropharynx showed tongue protrudes midline. NECK: Supple, no JVD. Thyroid is not palpable. LUNGS: Clear to percussion and to auscultation. Good air exchange. No wheezing or rhonchi. HEART: S1, S2 regular. No murmurs, gallops, or rubs. ABDOMEN: Soft and nontender. Bowel sounds are present. No organomegaly appreciated. EXTREMITIES: No clubbing or cyanosis. CONTAINER WASHER: Awake, alert, and oriented X3. Cranial nerves 2 to 7 intact. There is no fasciculation or atrophy. noted. No focal deficits observed. IMPRESSION: 1. Obstructive sleep apnea-hypopnea syndrome. Patient demonstrated great compliance with treatment benefitting from treatment, normal respiration on CPAP. 2. History of left breast CA status post partial mastectomy, chemotherapy and radiation therapy. 3. Obesity BMI 35.3. 4. History of thyroid CA status post thyroidectomy and treatment with radioactive iodine. 5. History of depression. 6. History of anxiety. 7. Status post tonsillectomy. PLAN: 1. Patient will continue to use PAP equipment every night for the whole night. 2. Sleep hygiene with regular time in bed for at least 7-1/2 to 8 hours. 3. Precautions related to driving. No driving if feeling sleepiness. 4. I will maintain all necessary prescription for PAP supplies including mask, tube, filters. 5. Watching weight. 6. Follow-up visit in 6 months or earlier if patient has any problems. Thank you very much for allowing me to participate in management of your patient. Sincerely, Hoang Guzmán MD, PhD, FAASM Diplomat of [place] [employer] Sleep Medicine Board of [place] [employer] Biscuit Machine Operator of [facility] [place] KARI / EPIFANION: [id number] /
== END ==
LOC: SLEEP 16:41
PROVIDERS: ATTEND Internal Medicine
DX: G47.33 Obstructive sleep apnea (adult) (pediatric) (principal); E66.9 Obesity, unspecified; F32.A Depression, unspecified; F41.9 Anxiety disorder, unspecified; Z90.09 Acquired absence of other part of head and neck; Z68.35 Body mass index [BMI] 35.0-35.9, adult; Z85.850 Personal history of malignant neoplasm of thyroid; Z85.3 Personal history of malignant neoplasm of breast; Z90.12 Acquired absence of left breast and nipple; Z90.89 Acquired absence of other organs; Z99.89 Dependence on other enabling machines and devices; Z88.1 Allergy status to other antibiotic agents; Z87.891 Personal history of nicotine dependence

== ENCOUNTER → 2021-05-23 | Outpatient (CLI) | payer MEDICAID ==
[2021-05-23 14:59] LABS: HCT 43.1 % (37.2-46.3); HGB 13.2 g/dL (12.0-15.0); MCHC 30.6 g/dL (32.0-37.0); MCV 81.8 fL (80.0-97.0); Mean Platelet Volume 11.8 fL (9.5-12.2); Platelet Count 204 X 10*3/uL (140-440); RBC 5.27 X 10*6/uL (4.10-5.20); RDW 17.9 % (11.5-14.5); WBC 8.37 X 10*3/uL (4.50-10.00)
[2021-05-23 16:05] LABS: ALT 26 U/L (8-44); AST 25 U/L (13-35); African American GFR (CKD) 95.1 (60.0-200.0); Albumin 4.3 g/dL (3.8-4.9); Albumin/Globulin Ratio 2.11 (1.60-3.17); Alkaline Phosphatase 64 U/L (41-126); BUN/Creat Ratio 25.26 Ratio (12.00-20.00); Blood Urea Nitrogen 19.7 mg/dL (9.0-27.0); Calcium 9.7 mg/dL (8.7-10.3); Carbon Dioxide 25.1 mmol/L (20.0-27.5); Chloride 102 mmol/L (96-109); Chol/HDL Ratio 3.88 Ratio; Glucose 80 mg/dL (70-110); Non-African American GFR(CKD) 82.1 (60.0-200.0); Potassium 4.4 mmol/L (3.5-5.5); Sodium 139 mmol/L (135-145); Total Protein 6.3 g/dL (6.2-8.2)
== END | disposition home or self-care (01) ==
LOC: LABWHC1 10:24
PROVIDERS: ATTEND Internal Medicine
DX: E03.9 Hypothyroidism, unspecified (principal); E55.9 Vitamin D deficiency, unspecified; E78.5 Hyperlipidemia, unspecified
CPT/HCPCS: 36415; 80053; 80061; 82306; 84443; 85027

== ENCOUNTER → 2021-09-09 | Outpatient (CLI) | payer MEDICAID ==
[2021-09-09 14:23] LABS: Basophils % (A) 1.5 %; Eosinophils % (A) 12.4 %; HCT 44.6 % (37.2-46.3); HGB 13.7 g/dL (12.0-15.0); Immature Grans, Automated 0.2 %; Lymphocytes # (A) 2.07 X 10*3/uL (0.90-5.00); MCH 27.2 pg (27.0-32.0); MCHC 30.7 g/dL (32.0-37.0); MCV 88.5 fL (80.0-97.0); Mean Platelet Volume 11.6 fL (9.5-12.2); Monocytes # (A) 0.67 X 10*3/uL (0.20-1.00); Monocytes % (A) 10.4 %; NRBC Per 100 WBC 0 /100 WBCS (0.0-0.0); Neutrophils # (A) 2.81 X 10*3/uL (1.80-7.70); Neutrophils % (A) 43.5 %; Platelet Count 215 X 10*3/uL (140-440); RBC 5.04 X 10*6/uL (4.10-5.20); RDW 13.8 % (11.5-14.5); WBC 6.46 X 10*3/uL (4.50-10.00)
[2021-09-09 14:57] LABS: % Iron Saturation 13.18 (12.00-45.00); ALT 25 U/L (8-44); AST 23 U/L (13-35); African American GFR (CKD) 100.8 (60.0-200.0); Albumin 4.3 g/dL (3.8-4.9); Albumin/Globulin Ratio 2.09 (1.60-3.17); Alkaline Phosphatase 57 U/L (41-126); BUN/Creat Ratio 23.55 Ratio (12.00-20.00); Blood Urea Nitrogen 17.5 mg/dL (9.0-27.0); Calcium 9.9 mg/dL (8.7-10.3); Carbon Dioxide 22.1 mmol/L (20.0-27.5); Chloride 106 mmol/L (96-109); Chol/HDL Ratio 4.18 Ratio; Ferritin 12.9 ng/mL (10.0-291.0); Glucose 87 mg/dL (70-110); Iron 63 ug/dL (50-170); LDL Cholesterol,Calculated 153.7 mg/dL (0.0-131.0); Magnesium 2.2 mg/dL (1.5-2.4); Potassium 4.8 mmol/L (3.5-5.5); Sodium 141 mmol/L (135-145); Total Bilirubin <0.15 mg/dL (0.30-1.20); Total Iron Binding Capacity 480 ug/dL (228-460); Total Protein 6.3 g/dL (6.2-8.2)
== END | disposition home or self-care (01) ==
LOC: LABWHC1 10:03
PROVIDERS: ATTEND Internal Medicine
DX: E78.2 Mixed hyperlipidemia (principal); E03.9 Hypothyroidism, unspecified; G47.33 Obstructive sleep apnea (adult) (pediatric); G25.81 Restless legs syndrome; K57.30 Diverticulosis of large intestine without perforation or abscess without bleeding; F41.9 Anxiety disorder, unspecified; R45.89 Other symptoms and signs involving emotional state
CPT/HCPCS: 36415; 80053; 80061; 82306; 82728; 83036; 83540; 83550; 83735; 84439; 84443; 85025

== ENCOUNTER → 2021-10-22 | Outpatient (CLI) | payer MEDICAID ==
--- NOTE | 2021-10-23 09:58 | CT ---
EXAMINATION TYPE: CT heart w calcium score DATE OF EXAM: 10/22/2021 COMPARISON: None. HISTORY: Screening for cardiovascular disorder. 213.9 CT DLP: 230.4 mGycm Automated exposure control for dose reduction was used. CT CALCIUM SCORING Coronary calcium is a marker for plaque (fatty deposits) in a blood vessel or atherosclerosis (harden ing of the arteries). The presence and amount of calcium detected in a coronary artery by the CT sca n, indicates the presence and amount of atherosclerotic plaque. These calcium deposits appear years before the development of heart disease symptoms such as chest pain and shortness of breath. A calcium score is computed for each of the coronary arteries based upon the volume and density of th e calcium deposits. This can be referred to as your calcified plaque burden. It does not correspond directly to the percentage of narrowing in the artery but does correlate with the severity of the un derlying coronary atherosclerosis. PROCEDURE TECHNIQUE - Prospective Gating was used. Slice thickness: 3mm. Density threshold (HU): 130, Pixel threshold: 3, Algorithm: discrete. RESULTS Region: LM Calcium Score ([place]): 0 Volume (mm3): 0 Mass (g): 0 Region: RCA Calcium Score ([place]): 0 Volume (mm3): 0 Mass (g): 0 Region: LAD Calcium Score ([place]at[place]): 0 Volume (mm3): 0 Mass (g): 0 Region: CX Calcium Score (Agatston): 0 Volume (mm3): 0 Mass (g): 0 Region: PDA Calcium Score ([place]): 0 Volume (mm3): 0 Mass (g): 0 TOTAL CALCIUM SCORE: 0 Incidental findings: Underlying dextroconvex scoliosis centered lower thoracic spine noted on localiz er. IMPRESSION: Calcium Score: 0 Implication: No identifiable plaque. Risk of Coronary Artery Disease: Very low, generally less than 5%.
== END | disposition home or self-care (01) ==
LOC: RADCTMAIN 14:14
PROVIDERS: ATTEND Internal Medicine
DX: Z13.6 Encounter for screening for cardiovascular disorders (principal)
CPT/HCPCS: 75571

== ENCOUNTER → 2021-12-04 | Outpatient (CLI) | payer MEDICAID ==
[2021-12-04 14:37] LABS: ALT 18 U/L (8-44); AST 18 U/L (13-35); African American GFR (CKD) 95.5 (60.0-200.0); Albumin/Globulin Ratio 2.11 (1.60-3.17); Alkaline Phosphatase 55 U/L (41-126); Blood Urea Nitrogen 13.6 mg/dL (9.0-27.0); Calcium 9.3 mg/dL (8.7-10.3); Carbon Dioxide 25.9 mmol/L (20.0-27.5); Chloride 109 mmol/L (96-109); Chol/HDL Ratio 4.47 Ratio; Globulin 1.9 g/dL (1.6-3.3); Glucose 80 mg/dL (70-110); LDL Cholesterol,Calculated 112.3 mg/dL (0.0-131.0); Non-African American GFR(CKD) 82.4 (60.0-200.0); Potassium 4.9 mmol/L (3.5-5.5); Sodium 143 mmol/L (135-145); Total Protein 5.9 g/dL (6.2-8.2)
== END | disposition home or self-care (01) ==
LOC: LABWHC1 08:04
PROVIDERS: ATTEND Internal Medicine
DX: E03.9 Hypothyroidism, unspecified (principal)
CPT/HCPCS: 36415; 80053; 80061; 84439; 84443

== ENCOUNTER → 2022-01-06 | Outpatient (CLI) | payer MEDICAID ==
--- NOTE | 2022-01-06 09:48 | BD ---
EXAMINATION TYPE: Axial Bone Density DATE OF EXAM: 01/06/2022 COMPARISON: NONE CLINICAL HISTORY: 61 years year old Female. ICD-10 CODE: Z78.0 POST MENOPAUSAL Height: 65 IN Weight: 221 LBS FRAX RISK QUESTIONS: History of Fracture in Adulthood: LT TIBIA AGE 45 RISK FACTORS HISTORY OF: Active: YES Postmenopausal woman: AGE 45 MEDICATIONS: Thyroid Medications: YES Which medication: Levothyroxine How Lon YEARS Additional Medications: CALCIUM, VIT D, LEVOTHYROXINE,ANTI DEPRESSANT, CELEXA, Additional History: BREAST AND THYROID CANCER WITH CHEMO AND RAD 2005 EXAM MEASUREMENTS: Bone mineral densitometry was performed using the [employer] System. Bone mineral density as measured about the Lumbar spine is: ----- L1-L4(G/cm2): 1.117 T Score Values are as follows: ----- L1: -0.3 ----- L2: -1.6 ----- L3: -0.7 ----- L4: 0.2 ----- L1-L4: -0.5 Bone mineral density BASELINE Bone mineral density about the R hip (g/cm2): 1.177 Bone mineral density about the L hip (g/cm2): 1.062 T Score values are as follows: -----R Neck: 1.0 -----L Neck: 0.2 -----R Total: 1.5 -----L Total: 0.6 Bone mineral density BASELINE FRAX%s: The graph provided illustrates a 9.7 chance for a major osteoporotic fx and a 0.2 chance for the hips probability for fx in 10 years time. IMPRESSION: Normal (Values between +1 and -1 indicate normal bone mass). Consider repeating this study in 5 year s or sooner if there is some new clinical indication. NOTE: T-SCORE=SD OF THE YOUNG ADULT MEAN.
--- NOTE | 2022-01-06 10:35 | MM ---
Reason for Exam: Screening (asymptomatic). Last screening mammogram was performed 12 month(s) ago. Patient History: Menarche at age 13. Postmenopausal. Breast cancer, age 44. Other cancer, age 44. Previous chest radiation therapy at age 44. Previous chemotherapy at age 44. Patient used Hormonal Contraceptives for 24 years. 2004, Lumpectomy on the Left side. Core Biopsy on the Left side. Core Biopsy on the Left side. Core Biopsy on the Left side. 03/02/2018, Benign Core Biopsy on the right side. 03/02/2018, Benign Core Biopsy on the right side. 10/03/2004, Stereotactic Core Biopsy on the Left side. 10/03/2004, Malignant Stereotactic Core Biopsy on the left side. 10/03/2004, Malignant Stereotactic Core Biopsy on the left side. 2004, Chemotherapy. 2004, Radiation Therapy on the left side. Sister had breast cancer, age 48. Mother had breast cancer, age 68. Prior Study Comparison: 10/11/2018 Bilateral Diagnostic Mammogram, [facility]. 12/13/2019 Bilateral Screening Mammogram, [facility]. 12/13/2020 Bilateral Screening Mammogram, [facility]. Tissue Density: There are scattered fibroglandular densities. Findings: Analyzed By CAD. Previous mammotome biopsy in the right breast x2. Benign round oil cyst calcifications. Postsurgical change of the left breast. There is no suspicious group of microcalcifications or new suspicious mass in either breast. No significant change from prior examinations. Overall Assessment: Benign, BI-RAD 2 Management: Screening Mammogram of both breasts in 1 year. A clinical breast exam by your physician is recommended on an annual basis and results should be correlated with mammographic findings. Electronically signed and approved by: Howard Shaffer D.O.
== END | disposition home or self-care (01) ==
LOC: RADMAMWWP 06:57
PROVIDERS: ATTEND Obstetrics & Gynecology
DX: Z12.31 Encounter for screening mammogram for malignant neoplasm of breast (principal); Z78.0 Asymptomatic menopausal state; Z80.3 Family history of malignant neoplasm of breast
CPT/HCPCS: 77063; 77067; 77080

== ENCOUNTER → 2022-01-08 | Outpatient (CLI) | payer MEDICAID ==
--- NOTE | 2022-01-09 07:39 | US ---
EXAMINATION TYPE: US carotid duplex BILAT DATE OF EXAM: 01/08/2022 COMPARISON: NONE CLINICAL HISTORY: I65.23 OCCLUSION AND STENOSIS OF BILATERAL CAROTID. Stenosis EXAM MEASUREMENTS: RIGHT: Peak Systolic Velocity (PSV) cm/sec ----- Right CCA: 71.5 ----- Right ICA: 61.2 ----- Right ECA: 77.3 ICA/CCA ratio: 0.86 RIGHT: End Diastole cm/sec ----- Right CCA: 22.1 ----- Right ICA: 30.3 ----- Right ECA: 12.6 LEFT: Peak Systolic Velocity (PSV) cm/sec ----- Left CCA: 56.5 ----- Left ICA: 79.7 ----- Left ECA: 82.6 ICA/CCA ratio: 1.4 LEFT: End Diastole cm/sec ----- Left CCA: 12.0 ----- Left ICA: 36.9 ----- Left ECA: 15.4 VERTEBRALS (direction of flow): Right Vertebral: Antegrade Left Vertebral: Antegrade Rhythm: Normal No significant stenosis IMPRESSION: No significant flow-limiting stenosis. Criteria for Assigning % of Stenosis / Diameter reduction (Estimation based on the indirect measurements of the internal carotid artery velocities (ICA PSV). 1. Normal (no stenosis)=ICA PSV < 125 cm/s: ratio < 2.0: ICA EDV<40 cm/s. 2. Less than 50% stenosis=ICA PSV < 125 cm/s: ratio < 2.0: ICA EDV<40 cm/s. 3. 50 to 69% stenosis=ICA PSV of 125 to 230 cm/s: ration 2.0 ? 4.0: ICA EDV 40-100 cm/s. 4. Greater than 70% stenosis to near occlusion= ICA PSV > 230 cm/s: ratio > 4.0: ICA EDV > 100 cm/s. 5. Near occlusion= ICA PSV velocities may be low or undetectable: variable ratio and ICA EDV. 6. Total occlusion=unable to detect flow.
== END | disposition home or self-care (01) ==
LOC: RADUSWWP 16:44
PROVIDERS: ATTEND Internal Medicine
DX: I65.23 Occlusion and stenosis of bilateral carotid arteries (principal)
CPT/HCPCS: 93880

== ENCOUNTER → 2022-05-21 | Outpatient (CLI) | payer MEDICAID ==
--- NOTE | 2022-05-21 17:01 | P.PN ---
Subjective DATE: 05/21/2022 FOLLOW UP VISIT. Patient with obstructive sleep apnea hypopnea syndrome return to sleep center for follow-up visit. Information from previous visit have been reviewed. Patient is using PAP equipment every night for the whole night, getting PAP supplies in time. The patient does not have significant problems with the mask, PAP unit and humidification. [place] sleepiness scale is increased to 13. I checked information from PAP unit. PAP unit pressure 5-15, average 10.2 cm H2O. Usage is 98 % for more then 4 hours, average 7.4 hours per night. Leak is 12 l/m, which is in acceptable range. Apnea Hypopnea Index is 1.6, which is normal. MEDICATIONS:1. Wellbutrin 300 mg once a day 2. Celexa 10 mg once a day 3. Levothyroxine 175 g 5 days per week and 25 g 2 days per week 4. Xanax 0.25 mg as needed 5. Meloxicam 15 mg as needed During physical exam: GENERAL: A pleasant patient without any distress. VITAL SIGNS: BP 126/86, HR 68, RR 15 , weight 220, temperature 97.0, oxygen saturation at room air 99 % . HEENT: PERRLA, EOMI.low position of soft palate . NECK: Supple. No JVD. LUNGS: Clear to percussion and to auscultation. Good air exchange. No wheezing or rhonchi. HEART: S1, S2 regular. ABDOMEN: Soft and nontender.[] EXTREMITIES: No clubbing or cyanosis. TRAVEL GUIDE: Awake, alert, and oriented x3. No focal deficit. Impressions: 1. Obstructive sleep apnea-hypopnea syndrome. Patient demonstrated great compliance with treatment, benefiting from treatment. 2. Obesity. 3. History of thyroid CA status post thyroidectomy and treatment with radioactive iodine. 4. History of left breast see status post partial mastectomy, chemotherapy and radiation therapy. 5. History of depression. 6. History of anxiety. 7. Status post tonsillectomy. Plan: 1. Continue using PAP equipment every night for the whole night. 2. To change air filter at least 1-2 times per month. 3. PAP unit should stay lower then position of the head. 4. Advised patient to remove all remaining water from humidifier canister daily and make it dry after each usage. Refill canister with fresh distilled water before each usage. 5. Sleep hygiene with regular time in bed for at least 8 hours. 6. Precautions related to driving. No driving if feel any sleepiness. 7. I will maintain prescription for PAP supplies including mask, tube, filters. 8. Follow up visit in 6 months or earlier if patient has any problems. 9. Watching weight. Thank you very much for allowing me to participate in the management of your patient. Hoang Guzmán MD, PhD, FAASM. Diplomat of [place] [employer], Sleep Medicine Board by [place] [employer] Packaging Tech of [facility] [place]
== END ==
LOC: SLEEP 16:25
PROVIDERS: ATTEND Internal Medicine
DX: G47.33 Obstructive sleep apnea (adult) (pediatric) (principal); E66.9 Obesity, unspecified; Z99.89 Dependence on other enabling machines and devices; Z85.850 Personal history of malignant neoplasm of thyroid; Z85.3 Personal history of malignant neoplasm of breast; Z86.59 Personal history of other mental and behavioral disorders; Z90.89 Acquired absence of other organs; Z87.891 Personal history of nicotine dependence; Z88.1 Allergy status to other antibiotic agents
CPT/HCPCS: 99212

== ENCOUNTER → 2022-12-18 | Outpatient (CLI) | payer MEDICAID ==
--- NOTE | 2022-12-18 11:51 | XR ---
EXAMINATION TYPE: XR lumbar spine 2 or 3V DATE OF EXAM: 12/18/2022 11:15 AM INDICATION: Patient age:Female; 62 years old; Reason for study: M47.816 spondylosis; COMPARISON: None TECHNIQUE: Frontal, lateral and coned in L5-S1 lateral views of the spine. FINDINGS: No evidence of any acute osseous pathology. Mild wedging of multiple vertebral bodies is pr esent anteriorly. There is scoliosis apex left L2-L3 alignment of the lumbar vertebral bodies. Mild s cattered disc space narrowing. Multilevel marginal osteophyte formation throughout the visualized spi ne. There is facet joint arthropathy throughout the spine. Scattered at least mild neural foraminal s tenosis worse in the lower lumbar spine particularly L5-S1. Cholecystectomy clips are present. IMPRESSION: 1. No acute fracture. 2. Moderate to severe multilevel disc degeneration with associated scoliosis changes. No evidence of fracture. Multilevel neural foraminal narrowing is present..
== END | disposition home or self-care (01) ==
LOC: RADXRMAIN 10:42
PROVIDERS: ATTEND Internal Medicine
DX: M47.816 Spondylosis without myelopathy or radiculopathy, lumbar region (principal); M51.36 Other intervertebral disc degeneration, lumbar region; M99.73 Connective tissue and disc stenosis of intervertebral foramina of lumbar region
CPT/HCPCS: 72100

== ENCOUNTER → 2022-12-26 | Outpatient (CLI) | payer MEDICAID ==
--- NOTE | 2022-12-27 18:37 | MR ---
EXAMINATION TYPE: MR lumbar spine wo con DATE OF EXAM: 12/26/2022 3:28 PM COMPARISON: None. CLINICAL INDICATION: Female, 62 years old with history of M47.816 SPONDYLOSIS W/O MYELOPATHY; Lower b ack pain, difficulty sitting, LLE radiculopathy x 4 months. TECHNIQUE: Multi planar, multi sequence imaging was performed utilizing: T1-weighted, T2-weighted, a nd turbo inversion recovery imaging of the lumbar spine. IV Contrast: None. FINDINGS: Alignment: The lumbar vertebral bodies have preserved heights. Mild scoliosis of the lumbar spine. Cord: The conus medullaris and the distal spinal cord appear unremarkable with regards to their signa l intensity and morphology. Bones/Discs: Mild multilevel disc degeneration with disc space narrowing, osteophytes and facet joint arthropathy. T12-L1: No evidence of significant spinal canal stenosis or neural foraminal stenosis. L1-L2: Disc bulge and facet joint arthropathy result in mild spinal canal and moderate right and mild to moderate left neural foraminal stenosis. L2-L3: Disc bulge and facet joint arthropathy result in mild spinal canal and moderate to severe righ t and mild left neural foraminal stenosis. L3-L4: Disc bulge and facet joint arthropathy result in mild spinal canal and moderate bilateral neur al foraminal stenosis. L4-L5: Disc bulge and facet joint arthropathy result in mild spinal canal and mild to moderate bilate ral neural foraminal stenosis. L5-S1: The disc is rounded posterior morphology without significant spinal canal stenosis. Facet join t arthropathy with mild neural foraminal stenosis. T11-12 disc bulge with no spinal canal stenosis. Partial evaluation on sagittal imaging only demonstr ates possible extrusion with superior migration up to 8 mm. Other findings: None. IMPRESSION: 1. No definitive evidence significant spinal canal stenosis. Questionable T11-T12 disc extrusion see n on sagittal imaging, 2 2 imaging sinuses. 2. Multilevel disc degeneration with associated osteoarthritic changes with varying degrees of neura l foraminal stenosis throughout the spine.
== END | disposition home or self-care (01) ==
LOC: RADMRIMAIN 14:53
PROVIDERS: ATTEND Internal Medicine
DX: M47.816 Spondylosis without myelopathy or radiculopathy, lumbar region (principal); M51.36 Other intervertebral disc degeneration, lumbar region; M99.73 Connective tissue and disc stenosis of intervertebral foramina of lumbar region
CPT/HCPCS: 72148

== ENCOUNTER → 2023-01-07 | Outpatient (CLI) | payer MEDICAID ==
--- NOTE | 2023-01-08 07:33 | MM ---
Reason for Exam: Screening (asymptomatic). Last screening mammogram was performed 12 month(s) ago. Patient History: Menarche at age 13. Postmenopausal. Breast cancer, left, age 44. Other cancer, age 44. Previous chest radiation therapy at age 44. Previous chemotherapy at age 44. Patient used Hormonal Contraceptives for 24 years. 2004, Lumpectomy on the Left side. Core Biopsy on the Left side. Core Biopsy on the Left side. Core Biopsy on the Left side. 03/02/2018, Benign Core Biopsy on the right side. 03/02/2018, Benign Core Biopsy on the right side. 10/03/2004, Stereotactic Core Biopsy on the Left side. 10/03/2004, Malignant Stereotactic Core Biopsy on the left side. 10/03/2004, Malignant Stereotactic Core Biopsy on the left side. 2004, Chemotherapy. 2004, Radiation Therapy on the left side. Sister had breast cancer, age 48. Mother had breast cancer, age 68. Prior Study Comparison: 12/13/2019 Bilateral Screening Mammogram, [facility]. 12/13/2020 Bilateral Screening Mammogram, [facility]. 01/06/2022 Bilateral MG 3D screening mammo w/cad, [facility]. Tissue Density: The breast tissue is heterogeneously dense. This may lower the sensitivity of mammography. Findings: Analyzed By CAD. There is no suspicious group of microcalcifications or new suspicious mass in either breast. Stable postoperative distortion left breast. Stable scattered punctate calcifications. Overall Assessment: Benign, BI-RAD 2 Management: Screening Mammogram of both breasts in 1 year. . Patient should continue monthly self-breast exams. A clinical breast exam by your physician is recommended on an annual basis. This exam should not preclude additional follow-up of suspicious palpable abnormalities. Note on Gilma scores and lifetime risk: 1. A Gilma score greater than 3% is considered moderate risk. If this is the case, consider specialist referral to assess eligibility for a risk reducing agent. 2. If overall lifetime risk for the development of breast cancer is 20% or higher, the patient may qualify for future screening with alternating mammogram and breast MRI. Electronically signed and approved by: Curt Belcher M.D. Radiologis
== END | disposition home or self-care (01) ==
LOC: RADMAMWWP 07:05
PROVIDERS: ATTEND Obstetrics & Gynecology
DX: Z12.31 Encounter for screening mammogram for malignant neoplasm of breast (principal); Z78.0 Asymptomatic menopausal state; Z80.3 Family history of malignant neoplasm of breast
CPT/HCPCS: 77063; 77067

== ENCOUNTER 2023-01-13 11:04 | Emergency (ER) | payer MEDICAID ==
[2023-01-13 11:10] VITALS: RESP 16; TEMP 98
--- NOTE | 2023-01-13 11:50 | CT ---
EXAMINATION TYPE: CT facial bones wo con DATE OF EXAM: 01/13/2023 COMPARISON: None HISTORY: fall large hematoma to left orbit CT DLP: 1202.3 mGycm CONTRAST: 0 mL of Isovue 300 The paranasal sinuses are examined in the axial plane at 2 mm thick sections. Reconstructed images i n the coronal plane were obtained. There is dental amalgam scatter artifact. Maxillary spine is intact. Greater wings of the sphenoid ar e intact. Frontal temporal bone is intact. Medial orbital ibarra and orbital floors are intact. No acu te fractures are identified. Nasal bones appear intact. There is a large left supraorbital subcutaneo us hematoma. The maxillary sinuses are clear. The ethmoid air cells are clear. The sphenoid sinuses are clear. The frontal sinuses are clear. The septum is evaluated. There is septal deviation to the left. The ostiomeatal units are patent. IMPRESSIONS: 1. Large hematoma left supraorbital region. 2. No acute fractures identified.
--- NOTE | 2023-01-13 12:07 | CT ---
EXAMINATION TYPE: CT brain timbo wo con DATE OF EXAM: 01/13/2023 COMPARISON: None HISTORY: fall large hematoma to left orbit CT DLP: 1202.3 mGycm, Automated exposure control for dose reduction was used. CONTRAST: Patient injected with 0 mL of Isovue 300. CT of the brain is performed utilizing 3 mm thick sections through the posterior fossa and 3 mm thick sections through the remaining calvarium. Study is performed within 24 hours of arrival to the hospital. No abnormal hyperdensity is present to suggest an acute intracranial hemorrhage. No mass lesion is evident. No acute infarcts are evident. Ventricles and sulci are appropriate for the patient age. There is a large subcutaneous hematoma along the left supraorbital region. No underlying fracture is evident. Some mild hyperostosis frontalis internus, a normal variant, is present. Paranasal sinuses and mastoid air cells within the [id number] are clear. IMPRESSIONS: 1. No acute intracranial process. Follow-up MRI can be performed as clinically indicated. 2. Superficial subcutaneous hematoma left supraorbital region CT cervical spine. COMPARISON: None CT of the cervical spine is performed in the axial plane at 2 mm thick sections. Reconstructed image s in the coronal, and sagittal plane are reviewed on the computer. No acute fractures are evident. Vertebral body alignment is straightened. Some mild kyphosis may be present which can be positional o r related to muscle spasm. There is diffuse narrowing of disc height through the cervical spine Vertebral body heights are preserved. No spinal canal stenosis is evident. There is a posterior superior spur at C4. Diffuse uncovertebral joint hypertrophy contributing to mild diffuse narrowing of the foramen bilater ally. IMPRESSIONS: 1. Endplate spurring superior C4 has mild anterior thecal sac compression. No spinal canal stenosis i s evident. 2. Uncovertebral joint hypertrophy with diffuse bilateral foraminal narrowing. 3. Mild degenerative disc changes throughout the cervical spine
--- NOTE | 2023-01-13 12:35 | ED ---
Fall HPI - General Chief Complaint: Fall Stated Complaint: fall, hit head Time Seen by Provider: 01/13/23 11:17 Source: patient Mode of arrival: ambulatory - History of Present Illness Initial Comments: Patient is a 60-year-old female presenting the emergency room after a trip and fall landing on the cement hitting the side of her face with subsequent hematoma formation above the left eye. No loss of consciousness and not on blood thinners. She denies any focal neurological deficits, nausea, vomiting, headache not directly related to hematoma, blurred or double vision or dizziness. She has a past medical history significant for breast cancer - Related Data Home Medications Medication Instructions Recorded Confirmed Cholecalciferol (Vitamin D3) 2,000 unit PO DAILY 03/01/18 11/10/19 [Vitamin D3] Levothyroxine Sodium [Synthroid] 200 mcg PO DAILY 03/01/18 11/10/19 Magnesium 200 mg PO DAILY 03/01/18 11/10/19 LORazepam [Ativan] 1 mg PO TID PRN 03/02/18 11/10/19 Loratadine [Claritin] 10 mg PO DAILY 11/08/19 11/10/19 buPROPion HCL [Wellbutrin SR] 200 mg PO BID 11/08/19 11/10/19 Allergies Allergy/AdvReac Type Severity Reaction Status Date / Time levofloxacin [From Levaquin] AdvReac Confusion Verified 11/10/19 09:07 Review of Systems ROS Statement: Those systems with pertinent positive or pertinent negative responses have been documented in the HPI. ROS Other: All systems not noted in ROS Statement are negative. Past Medical History Past Medical History: Cancer Additional Past Medical History / Comment(s): Hx. left breast cancer, thyroid cancer both age 44 History of Any Multi-Drug Resistant Organisms: None Reported Past Surgical History: Breast Surgery, Section, Orthopedic Surgery, Tonsillectomy Additional Past Surgical History / Comment(s): Left breast lumpectomy, thyroidectomy l rotator cuff and l ankle Past Anesthesia/Blood Transfusion Reactions: No Reported Reaction Past Psychological History: Depression Past Alcohol Use History: None Reported General Exam Limitations: no limitations General appearance: alert, in no apparent distress Head exam: Present: normocephalic Expanded Head exam: Present: hematoma (Above left eye). Absent: laceration, general tenderness Eye exam: Present: normal appearance, PERRL, EOMI, periorbital tenderness (Mild upper with hematoma above left eye). Absent: scleral icterus, conjunctival injection ENT exam: Present: normal exam, mucous membranes moist Neck exam: Present: normal inspection, full ROM. Absent: tenderness Respiratory exam: Absent: respiratory distress, accessory muscle use Cardiovascular Exam: Present: regular rate Extremities exam: Present: normal inspection, full ROM. Absent: pedal edema, joint swelling Back exam: Present: normal inspection, full ROM Neurological exam: Present: alert, oriented X3, CN II-XII intact Psychiatric exam: Present: normal affect, normal mood Skin exam: Present: other (Mild early ecchymosis and hematoma above left eye). Absent: abrasion Course Vital Signs 01/13/23 01/13/23 11:07 12:40 Temperature 98 F Pulse Rate 67 60 Respiratory 16 16 Rate Blood Pressure 159/99 121/81 O2 Sat by Pulse 95 96 Oximetry Medical Decision Making - Medical Decision Making Was pt. sent in by a medical professional or institution (, PA, CONDENSER SETTER, urgent care, hospital, or detention...) When possible be specific @ -No Did you speak to anyone other than the patient for history (EMS, parent, family, police, friend...)? What history was obtained from this source @ -No Did you review nursing and triage notes (agree or disagree)? Why? @ -I reviewed and agree with nursing and triage notes Were old charts reviewed (outside hosp., previous admission, EMS record, old EKG, old radiological studies, urgent care reports/EKG's, detention records)? Report findings @ -No old charts were reviewed Differential Diagnosis (chest pain, altered mental status, abdominal pain women, abdominal pain men, vaginal bleeding, weakness, fever, dyspnea, syncope, headache, dizziness, GI bleed, back pain, seizure, CVA, palpatations, mental health, musculoskeletal)? @ -not applicable EKG interpreted by me (3pts min.). @ -None done X-rays interpreted by me (1pt min.). @ -None done CT interpreted by me (1pt min.). @ -CT of the brain and facial bones: No intracranial hemorrhage, mass or shift, no facial bone fractures. U/S interpreted by me (1pt. min.). @ -None done What testing was considered but not performed or refused? (CT, X-rays, U/S, labs)? Why? @ -None What meds were considered but not given or refused? Why? @ -Analgesics offered and declined Did you discuss the management of the patient with other professionals (professionals i.e. , PA, CONDENSER SETTER, lab, RT, psych nurse, group social worker, bending press operator, teacher, risk control officer, counseling case manager)? Give summary @ -No Was smoking cessation discussed for >3mins.? @ -No Was critical care preformed (if so, how long)? @ -No Were there social determinants of health that impacted care today? How? (Homelessness, low income, unemployed, alcoholism, drug addiction, transportation, low edu. Level, literacy, decrease access to med. care, halfway, rehab)? @ -No Was there de-escalation of care discussed even if they declined (Discuss DNR or withdrawal of care, Hospice)? DNR status @ -No What co-morbidities impacted this encounter? (DM, HTN, Smoking, COPD, CAD, Cancer, CVA, ARF, Chemo, Hep., AIDS, mental health diagnosis, sleep apnea, morbid obesity)? @ -None Was patient admitted / discharged? Hospital course, mention meds given and route, prescriptions, significant lab abnormalities, going to OR and other pertinent info. @ -60-year-old female presenting the emergency room after a trip and fall landing on the cement hitting the side of her face with subsequent hematoma formation above the left eye. No loss of consciousness and not on blood thinners however due to hematoma and questionable injury at work will proceed with CT of the brain and facial bones. Analgesics offered and declined. CT of brain and facial bones without abnormalities. Signs and symptoms regarding concussion, facial hematoma and closed head injuries reviewed with patient. Advised use of [id number] analgesics of Motrin or Tylenol as stated for pain. Encouraged follow-up with primary care provider. Questions and concerns answered. Return parameters emergency room discussed. Will discharge home in stable condition with follow-up with primary care provider utilizing [id number] analgesics to treat any pain related to closed head injury without loss of consciousness and hematoma secondary to fall. Undiagnosed new problem with uncertain prognosis? @ -No Drug Therapy requiring intensive monitoring for toxicity (Heparin, Nitro, Insulin, Cardizem)? @ -No Were any procedures done? @ -No Diagnosis/symptom? @ -Fall Acute, or Chronic, or Acute on Chronic? @ -Acute Uncomplicated (without systemic symptoms) or Complicated (systemic symptoms)? @ -Uncomplicated Side effects of treatment? @ -No Exacerbation, Progression, or Severe Exacerbation? @ -No Poses a threat to life or bodily function? How? (Chest pain, USA, [place], pneumonia, PE, COPD, DKA, ARF, appy, cholecystitis, CVA, Diverticulitis, Homicidal, Suicidal, threat to staff... and all critical care pts) @ -No Diagnosis/symptom? @ -Hematoma Acute, or Chronic, or Acute on Chronic? @ -Acute Uncomplicated (without systemic symptoms) or Complicated (systemic symptoms)? @ -Uncomplicated Side effects of treatment? @ -none Exacerbation, Progression, or Severe Exacerbation] @ -no Poses a threat to life or bodily function? @ -no Diagnosis/symptom? @ -Closed head injury without loss of consciousness Acute, or Chronic, or Acute on Chronic? @ -Acute Uncomplicated (without systemic symptoms) or Complicated (systemic symptoms)? @ -Uncomplicated Side effects of treatment? @ -none Exacerbation, Progression, or Severe Exacerbation] @ -no Poses a threat to life or bodily function? @ -no Case discussed with Dr. Jim. Disposition Clinical Impression: Fall, Closed head injury without loss of consciousness, Hematoma Disposition: HOME SELF-CARE Condition: Stable Instructions (If sedation given, give patient instructions): Concussion (ED), Fall Prevention (ED), Hematoma (ED) Additional Instructions: Please utilize [id number] Motrin or Tylenol as needed for pain. Monitor for concussive symptoms and return to the emergency room if symptoms become severe. Please follow-up with your primary care provider. Please return to the Emergency Department if symptoms worsen or any other concerns. Is patient prescribed a controlled substance at d/c from ED?: No Referrals: Jolanta Rivas MD [Primary Care Provider] - 1-2 days Time of Disposition: 12:35
[2023-01-13 12:50] VITALS: BP 121/81; PULSE 60
== END 2023-01-13 12:42 | disposition home or self-care (01) ==
LOC: EC 11:04
DX: S00.83XA Contusion of other part of head, initial encounter (principal); F32.A Depression, unspecified; Z79.899 Other long term (current) drug therapy; Z79.890 Hormone replacement therapy; Z88.1 Allergy status to other antibiotic agents; Z85.850 Personal history of malignant neoplasm of thyroid; Z85.3 Personal history of malignant neoplasm of breast; W01.0XXA Fall on same level from slipping, tripping and stumbling without subsequent striking against object, initial encounter
CPT/HCPCS: 70450; 70486; 72125; 99284

== ENCOUNTER → 2023-01-29 | Outpatient (CLI) | payer MEDICAID ==
--- NOTE | 2023-01-29 08:13 | XR ---
EXAMINATION TYPE: XR Hip Bilateral Complete DATE OF EXAM: 01/29/2023 CLINICAL HISTORY: pain TECHNIQUE: AP and frogleg views of the bilateral hips are obtained. COMPARISON: None. FINDINGS: There is no acute fracture/dislocation evident. The joint space appears within normal li mits. The overlying soft tissue appears unremarkable. IMPRESSION: 1. There is no acute fracture or dislocation. ICD 10 NO FRACTURE, INITIAL EVALUATION
== END | disposition home or self-care (01) ==
LOC: RADXRMAIN 06:50
PROVIDERS: ATTEND Internal Medicine
DX: M25.551 Pain in right hip (principal); M25.552 Pain in left hip
CPT/HCPCS: 73521

== ENCOUNTER 2023-02-18 05:41 | Emergency (ER) | payer MEDICAID ==
[2023-02-18 06:01] VITALS: RESP 18; TEMP 98.9
--- NOTE | 2023-02-18 06:17 | ED ---
General Adult HPI - General Chief complaint: Headache Stated complaint: HEADACHE CHILLS Time Seen by Provider: 02/18/23 06:06 Source: patient, RN notes reviewed Mode of arrival: ambulatory Limitations: no limitations - History of Present Illness Initial comments: 62-year-old female presents emergency Department with chief complaint of fever, body aches, sore throat cough congestion. UTI. Patient states that she has urinary frequency and dysuria. Patient states that she developed diffuse body aches with associated nonproductive cough, nasal congestion sore throat. Denies any GI symptoms denies any localized abdominal pain no flank pain - Related Data Home Medications Medication Instructions Recorded Confirmed Cholecalciferol (Vitamin D3) 2,000 unit PO DAILY 03/01/18 11/10/19 [Vitamin D3] Levothyroxine Sodium [Synthroid] 200 mcg PO DAILY 03/01/18 11/10/19 Magnesium 200 mg PO DAILY 03/01/18 11/10/19 LORazepam [Ativan] 1 mg PO TID PRN 03/02/18 11/10/19 Loratadine [Claritin] 10 mg PO DAILY 11/08/19 11/10/19 buPROPion HCL [Wellbutrin SR] 200 mg PO BID 11/08/19 11/10/19 Allergies Allergy/AdvReac Type Severity Reaction Status Date / Time levofloxacin [From Levaquin] AdvReac Confusion Verified 02/18/23 06:01 Review of Systems ROS Statement: Those systems with pertinent positive or pertinent negative responses have been documented in the HPI. ROS Other: All systems not noted in ROS Statement are negative. Past Medical History Past Medical History: Cancer Additional Past Medical History / Comment(s): Hx. left breast cancer, thyroid cancer both age 44 History of Any Multi-Drug Resistant Organisms: None Reported Past Surgical History: Breast Surgery, Section, Orthopedic Surgery, Tonsillectomy Additional Past Surgical History / Comment(s): Left breast lumpectomy, thyroidectomy l rotator cuff and l ankle Past Anesthesia/Blood Transfusion Reactions: No Reported Reaction Past Psychological History: Depression Smoking Status: Never smoker Past Alcohol Use History: None Reported Past Drug Use History: None Reported General Exam Limitations: no limitations General appearance: alert, in no apparent distress Head exam: Present: atraumatic, normocephalic, normal inspection Eye exam: Present: normal appearance, PERRL, EOMI. Absent: scleral icterus, conjunctival injection, periorbital swelling ENT exam: Present: mucous membranes moist, TM's normal bilaterally. Absent: normal oropharynx (Erythema) Neck exam: Present: normal inspection, full ROM. Absent: tenderness, meningismus, lymphadenopathy Respiratory exam: Present: normal lung sounds bilaterally. Absent: respiratory distress, wheezes, rales, rhonchi, stridor Cardiovascular Exam: Present: regular rate, normal rhythm, normal heart sounds. Absent: systolic murmur, diastolic murmur, rubs, gallop, clicks Course Vital Signs 02/18/23 05:58 Temperature 98.9 F Pulse Rate 88 Respiratory 18 Rate Blood Pressure 104/68 O2 Sat by Pulse 95 Oximetry Medical Decision Making - Medical Decision Making Was pt. sent in by a medical professional or institution (RIMMA Blackwell, SCREW MACHINE OPERATOR SINGLE SPINDLE, urgent care, hospital, or assisted...) When possible be specific @ -No Did you speak to anyone other than the patient for history (EMS, parent, family, police, friend...)? What history was obtained from this source @ -No Did you review nursing and triage notes (agree or disagree)? Why? @ -I reviewed and agree with nursing and triage notes Were old charts reviewed (outside hosp., previous admission, EMS record, old EKG, old radiological studies, urgent care reports/EKG's, assisted records)? Report findings @ -No old charts were reviewed Differential Diagnosis (chest pain, altered mental status, abdominal pain women, abdominal pain men, vaginal bleeding, weakness, fever, dyspnea, syncope, headache, dizziness, GI bleed, back pain, seizure, CVA, palpatations, mental he alth, musculoskeletal)? @ -URI, covid. , Strep, UTI EKG interpreted by me (3pts min.). @ -None X-rays interpreted by me (1pt min.). @ -None done CT interpreted by me (1pt min.). @ -None done U/S interpreted by me (1pt. min.). @ -None done What testing was considered but not performed or refused? (CT, X-rays, U/S, labs)? Why? @ -None What meds were considered but not given or refused? Why? @ -None Did you discuss the management of the patient with other professionals (professionals i.e. Dr., PA, SCREW MACHINE OPERATOR SINGLE SPINDLE, lab, RT, psych nurse, social security benefits interviewer, new order clerk, teacher, security officers and guards, major case detective)? Give summary @ -No Was smoking cessation discussed for >3mins.? @ -No Was critical care preformed (if so, how long)? @ -No Were there social determinants of health that impacted care today? How? (Homelessness, low income, unemployed, alcoholism, drug addiction, transportation, low edu. Level, literacy, decrease access to med. care, half-way, rehab)? @ -No Was there de-escalation of care discussed even if they declined (Discuss DNR or withdrawal of care, Hospice)? DNR status @ -No What co-morbidities impacted this encounter? (DM, HTN, Smoking, COPD, CAD, Cancer, CVA, ARF, Chemo, Hep., AIDS, mental health diagnosis, sleep apnea, morbid obesity)? @ -None Was patient admitted / discharged? Hospital course, mention meds given and route, prescriptions, significant lab abnormalities, going to OR and other pertinent info. @ -Discharge patient is positive for covid19. Patient's vitals are stable patient suicide stress discharged in stable condition return parameters were discussed. Undiagnosed new problem with uncertain prognosis? @ -No Drug Therapy requiring intensive monitoring for toxicity (Heparin, Nitro, Insulin, Cardizem)? @ -No Were any procedures done? @ -No Diagnosis/symptom? @ -[covid 19] Acute, or Chronic, or Acute on Chronic? @ -[Acute] Uncomplicated (without systemic symptoms) or Complicated (systemic symptoms)? @ -[Uncomplicated] Side effects of treatment? @ -[No] Exacerbation, Progression, or Severe Exacerbation? @ -[No] Poses a threat to life or bodily function? How? (Chest pain, USA, [place], pneumonia, PE, COPD, DKA, ARF, appy, cholecystitis, CVA, Diverticulitis, Homicidal, Suicidal, threat to staff... and all critical care pts) @ -[No] - Lab Data Lab Results 02/18/23 02/18/23 02/18/23 Range/Units 06:41 06:41 06:41 Urine Color Colorless Urine Appearance Clear (Clear) Urine pH 7.5 (5.0-8.0) Ur Specific [place] 1.013 (1.001-1.035) Urine Protein Negative (Negative) Urine Glucose (UA) Negative (Negative) Urine Ketones Negative (Negative) Urine Blood Negative (Negative) Urine Nitrite Negative (Negative) Urine Bilirubin Negative (Negative) Urine Urobilinogen <2.0 (<2.0) mg/dL Ur Leukocyte Esterase Negative (Negative) Influenza Type A (PCR) Not Detected (Not Detectd) Influenza Type B (PCR) Not Detected (Not Detectd) RSV (PCR) Not Detected (Not Detectd) SARS-CoV-2 (PCR) Detected A (Not Detectd) Group A Strep (PCR) NOT DETECTED (Not Detectd) Disposition Clinical Impression: COVID-19 Disposition: HOME SELF-CARE Condition: Stable Instructions (If sedation given, give patient instructions): COVID-19 (Coronavirus Disease 2019) (ED) Additional Instructions: Please return to the Emergency Department if symptoms worsen or any other concerns. Is patient prescribed a controlled substance at d/c from ED?: No Referrals: Martha Cristina MD [STAFF PHYSICIAN] - 1-2 days Time of Disposition: 07:41
[2023-02-18 06:52] LABS: Appearance,Urine Clear (Clear); Bilirubin,Urine Negative (Negative); Blood,Urine Negative (Negative); Color,Urine Colorless; Glucose,Urine (UA) Negative (Negative); Ketones,Urine Negative (Negative); Leukocyte Esterase,Urine Negative (Negative); Nitrite,Urine Negative (Negative); PH, Urine 7.5 (5.0-8.0); Protein,Urine Negative (Negative); Specific Gravity,Urine 1.013 (1.001-1.035); Urobilinogen,Urine <2.0 mg/dL (<2.0)
[2023-02-18 07:54] VITALS: BP 118/78; PULSE 70
== END 2023-02-18 07:54 | disposition home or self-care (01) ==
LOC: EC 05:41
DX: U07.1 COVID-19 (principal); F32.A Depression, unspecified; Z79.899 Other long term (current) drug therapy; Z88.1 Allergy status to other antibiotic agents
CPT/HCPCS: 81003; 87636; 87651; 99284

== ENCOUNTER → 2023-05-20 | Outpatient (CLI) | payer MEDICAID ==
--- NOTE | 2023-05-20 17:01 | P.PN ---
Subjective DATE: 05/20/2023 FOLLOW UP VISIT. Patient with obstructive sleep apnea hypopnea syndrome return to sleep center for follow-up visit. Information from previous visit have been reviewed. Patient is using PAP equipment every night for the whole night, getting PAP supplies in time. The patient does not have significant problems with the mask, PAP unit and humidification. Sheldon sleepiness scale is, which is normal. I checked information from PAP unit. Patient has another CPAP unit and to several days used another machine. PAP unit pressure 5-15, average 11 cm H2O. Usage is 90 % for more then 4 hours, average 8.4 hours per night. Leak is 24 l/m, which is in acceptable range. Apnea Hypopnea Index is 0.7, which is normal. MEDICATIONS:1. Wellbutrin 300 mg once a day 2. Synthroid 3. Meloxicam 15 mg once a day 4. Loratidine 10 mg once a day 5. Xanax 0.25 mg as needed During physical exam: GENERAL: A pleasant patient without any distress. VITAL SIGNS: BP 129/87, HR 72, RR 16 , weight 207, temperature 97.5, oxygen saturation at room air 97 % . HEENT: PERRLA, EOMI.low position of soft palate, Mallapati 3 . NECK: Supple. No JVD. LUNGS: Clear to percussion and to auscultation. Good air exchange. No wheezing o r rhonchi. HEART: S1, S2 regular. ABDOMEN: Soft and nontender. Slightly obese EXTREMITIES: No clubbing or cyanosis. HRIS SPECIALIST: Awake, alert, and oriented x3. No focal deficit. Impressions: 1. Obstructive sleep apnea-hypopnea syndrome. Patient demonstrated good compliance with treatment, benefiting from treatment. 2. Obesity, BMI 34.9, patient lost 13 pounds since previous visit. 3. Status post thyroid cancer, status post thyroidectomy and treatment with radioactive iodine. 4. History of left breast cancer, status post partial hysterectomy, chemotherapy and radiation therapy. 5. History of depression. 6. History of anxiety. 7. Status post tonsillectomy. Plan: 1. Continue using PAP equipment every night for the whole night. 2. To change air filter at least 1-2 times per month. 3. PAP unit should stay lower then position of the head. 4. Advised patient to remove all remaining water from humidifier canister daily and make it dry after each usage. Refill canister with fresh distilled water before each usage. 5. Sleep hygiene with regular time in bed for at least 8 hours. 6. Precautions related to driving. No driving if feel any sleepiness. 7. I will maintain prescription for PAP supplies including mask, tube, filters. 8. Watching and continue losing weight. 9. Follow up visit in 6 months or earlier if patient has any problems. Thank you very much for allowing me to participate in the management of your patient. Hoang Guzmán MD, PhD, FAASM. Diplomat of [place] [employer], Sleep Medicine Board by [place] [employer] [facility] [place] [facility]
== END ==
LOC: 3 N SLEEP 16:26
PROVIDERS: ATTEND Internal Medicine
DX: G47.30 Sleep apnea, unspecified (principal); G47.33 Obstructive sleep apnea (adult) (pediatric); E89.0 Postprocedural hypothyroidism; E66.9 Obesity, unspecified; F41.9 Anxiety disorder, unspecified; F32.A Depression, unspecified; Z85.3 Personal history of malignant neoplasm of breast; Z85.850 Personal history of malignant neoplasm of thyroid; Z92.3 Personal history of irradiation; Z90.710 Acquired absence of both cervix and uterus; Z68.34 Body mass index [BMI] 34.0-34.9, adult; Z99.89 Dependence on other enabling machines and devices; Z88.3 Allergy status to other anti-infective agents; Z79.890 Hormone replacement therapy; Z87.891 Personal history of nicotine dependence
CPT/HCPCS: 99212

== ENCOUNTER → 2023-07-22 | Outpatient (CLI) | payer MEDICAID ==
[2023-07-22 10:19] LABS: INR 0.9 (<1.2); Partial Thromboplastin Time 23.4 sec (22.0-30.0); Prothrombin Time 10.2 sec (10.0-12.5)
[2023-07-22 16:45] LABS: HCT 40.3 % (37.2-46.3); MCH 25.6 pg (27.0-32.0); MCHC 29.8 g/dL (32.0-37.0); MCV 86.1 FL (80.0-97.0); Mean Platelet Volume 12.1 FL (9.5-12.2); NRBC Per 100 WBC 0 X 10*3/uL (0.00-0.01); Platelet Count 219 X 10*3/uL (140-440); RBC 4.68 X 10*6/uL (4.10-5.20); RDW 14.9 % (11.5-14.5); WBC 6.68 X 10*3/uL (4.50-10.00)
[2023-07-22 17:00] LABS: ALT 18 U/L (8-44); AST 22 U/L (13-35); Albumin 4.1 g/dL (3.8-4.9); Albumin/Globulin Ratio 1.78 Ratio (1.60-3.17); Alkaline Phosphatase 67 U/L (41-126); BUN/Creat Ratio 26.62 Ratio (12.00-20.00); Blood Urea Nitrogen 21.3 mg/dL (9.0-27.0); Calcium 9.2 mg/dL (8.7-10.3); Carbon Dioxide 24.6 mmol/L (21.6-31.8); Chloride 108 mmol/L (96-109); Globulin 2.3 g/dL (1.6-3.3); Glucose 87 mg/dL (70-110); Potassium 4.6 mmol/L (3.5-5.5); Sodium 142 mmol/L (135-145); Total Bilirubin <0.2 mg/dL (0.3-1.2); Total Protein 6.4 g/dL (6.2-8.2)
== END | disposition home or self-care (01) ==
LOC: LABPAT 09:16
PROVIDERS: ATTEND Orthopaedic Surgery Sports Medicine
DX: Z01.812 Encounter for preprocedural laboratory examination (principal); M17.12 Unilateral primary osteoarthritis, left knee; Z22.322 Carrier or suspected carrier of Methicillin resistant Staphylococcus aureus
CPT/HCPCS: 36415; 80053; 85027; 85610; 85730; 87070; 93005

== ENCOUNTER → 2023-07-22 | Outpatient (CLI) | payer MEDICAID ==
[2023-07-22 16:48] LABS: Basophils # (A) 0.09 X 10*3/uL (0.00-0.10); Basophils % (A) 1.3 %; Eosinophils % (A) 5.8 %; HCT 40.9 % (37.2-46.3); HGB 12.1 g/dL (12.0-15.0); Lymphocytes # (A) 1.72 X 10*3/uL (0.90-5.00); MCH 25.5 pg (27.0-32.0); MCHC 29.6 g/dL (32.0-37.0); MCV 86.3 FL (80.0-97.0); Mean Platelet Volume 11.9 FL (9.5-12.2); Monocytes # (A) 0.54 X 10*3/uL (0.20-1.00); Monocytes % (A) 7.8 %; NRBC Per 100 WBC 0 X 10*3/uL (0.00-0.01); Neutrophils # (A) 4.12 X 10*3/uL (1.80-7.70); Platelet Count 226 X 10*3/uL (140-440); RBC 4.74 X 10*6/uL (4.10-5.20); RDW 14.9 % (11.5-14.5); WBC 6.88 X 10*3/uL (4.50-10.00)
[2023-07-22 17:27] LABS: Chol/HDL Ratio 3.52 Ratio; LDL Cholesterol,Calculated 110.6 mg/dL (0.0-131.0)
[2023-07-22 19:04] LABS: Urine Alcohol Negative (Negative); Urine Barbiturate Negative (Negative); Urine Cocaine Negative (Negative); Urine Methadone Negative (Negative); Urine Opiates Negative (Negative); Urine Phencyclidine Negative (Negative)
== END | disposition home or self-care (01) ==
LOC: LABWHC1 09:19
PROVIDERS: ATTEND Internal Medicine
DX: K57.30 Diverticulosis of large intestine without perforation or abscess without bleeding (principal); E03.9 Hypothyroidism, unspecified; E78.2 Mixed hyperlipidemia; G25.81 Restless legs syndrome; Z79.899 Other long term (current) drug therapy
CPT/HCPCS: 36415; 80061; 80306; 82306; 83036; 84439; 84443; 85025

== ENCOUNTER 2023-08-19 07:30 | Day surgery (SDC) | payer MEDICAID ==
[~2023-08-19 07:30] MED LIST changes: -LACTATED RINGERS 1,000 ML IV SCH; +ONDANSETRON 4 MG/2 ML VIAL IVP PRN; +TRANEXAMIC 1,000 MG/100ML-NACL 1,000 MG in SALINE 1 100ML.BAG IVPB PRN
[2023-08-19] MEDS ORDERED: HYDROmorphone 0.5 MG/0.5 ML SYRINGE IVP PRN ×2 (07:39→09:29)
[2023-08-19] MEDS: LACTATED RINGERS 1,000 ML IV SCH ×2 (07:59→15:17)
[2023-08-19] MEDS: MELOXICAM 7.5 MG TAB PO PRN (08:15)
[2023-08-19] MEDS: GABAPENTIN 300 MG CAP PO PRN (08:15)
[2023-08-19] MEDS: ACETAMINOPHEN TAB 500 MG TAB PO PRN (08:15)
[2023-08-19] MEDS: ONDANSETRON 4 MG/2 ML VIAL IVP ONE (08:39)
[2023-08-19] MEDS: DEXAMETHASONE SOD PHOSPHATE 4 MG/ML 1 ML VIAL IV ONE (08:39)
[2023-08-19] MEDS: MIDAZOLAM 2 MG/2 ML VIAL IVP ONE (08:51)
[2023-08-19] MEDS: fentaNYL (PF) 50 MCG/ML 2 ML AMP IVP ONE (08:52)
[2023-08-19] MEDS ORDERED: TRANEXAMIC 1,000 MG/100ML-NACL PREMIX BAG ONE (09:15)
[2023-08-19] MEDS ORDERED: ROPIVACAINE 5 MG/ML 30 ML VIAL ONE (09:15)
[2023-08-19] MEDS ORDERED: SODIUM CHLORIDE 0.9% (PF) 10 ML VIAL ONE (09:15)
[2023-08-19] MEDS ORDERED: PROPOFOL 10 MG/ML 20 ML VIAL IV ONE (09:15)
[2023-08-19] MEDS ORDERED: MIDAZOLAM 2 MG/2 ML VIAL ONE (09:15)
[2023-08-19] MEDS ORDERED: NALOXONE 0.4 MG/ML 1 ML VIAL IV PRN (09:29)
[2023-08-19] MEDS ORDERED: ONDANSETRON 4 MG/2 ML VIAL IVP PRN (09:29)
[2023-08-19] MEDS ORDERED: HYDROmorphone 1 MG/ML 1 ML SYRINGE IVP PRN (09:29)
[2023-08-19] MEDS ORDERED: NA PHOS,M-B/NA PHOS,DI-BA 133 ML ENEMA RECTAL PRN (09:29)
[2023-08-19] MEDS ORDERED: bisacodyL 10 MG SUPP RECTAL PRN (09:29)
[2023-08-19] MEDS ORDERED: TEMAZEPAM 15 MG CAP PO PRN (09:29)
[2023-08-19] MEDS ORDERED: traMADol 50 MG TAB PO PRN (09:29)
[2023-08-19] MEDS ORDERED: MAGNESIUM HYDROXIDE 2,400 MG/30 ML CUP PO PRN (09:29)
[2023-08-19] MEDS ORDERED: ACETAMINOPHEN TAB 325 MG TAB PO PRN (09:29)
[2023-08-19] MEDS ORDERED: HYDROcodone/APAP 7.5-325MG 1 EACH TAB PO PRN (09:31)
[2023-08-19] MEDS: ceFAZolin 3,000 MG in SODIUM CHLORIDE 0.9% IRRIGATIO 3,000 ML IRRIGATION ONE (10:26)
--- NOTE | 2023-08-19 11:21 | P.ANPRN ---
Procedure Note - Anesthesia - Nerve Block Performed Left Adductor Canal Infusion Time Out Performed: Yes (0851) Date of Procedure: 08/19/23 Procedure Start Time: 08:52 Procedure Stop Time: 08:57 Location of Patient: PreOp Indication: Acute Post-Operative Pain, Requested by Surgeon Specifically requested for management of pain by DrMay: Houston Cosby Sedation Type: Sedate with meaningful contact maintained Preparation: Sterile Prep, Sterile Dressing Position: Supine Catheter Depth at Skin (cm): 8 Catheter: Indwelling Needle Types: Pajunk Needle Gauge: 18 Ultrasound used to visualize needle placement: Yes Ultrasound used to observe medication spread: Yes Injectate: 0.5% Ropivacaine (see comment for volume) (15cc + 10 cc nacl pf) Blood Aspirated: No Pain Paresthesia on Injection Noted: No Resistance on Injection: Normal Image Stored and Saved: Yes Events: Uneventful and Well Tolerated
--- NOTE | 2023-08-19 11:22 | P.ANPRN ---
Procedure Note - Anesthesia - Nerve Block Performed Left iPack Single Time Out Performed: Yes (0851) Date of Procedure: 08/19/23 Procedure Start Time: 08:58 Procedure Stop Time: 09:01 Location of Patient: PreOp Indication: Acute Post-Operative Pain, Requested by Surgeon Specifically requested for management of pain by DrMay: Houston Cosby Sedation Type: Sedate with meaningful contact maintained Preparation: Sterile Prep Position: Supine Catheter: None Needle Types: Pajunk Needle Gauge: 21 Ultrasound used to visualize needle placement: Yes Ultrasound used to observe medication spread: Yes Injectate: 0.5% Ropivacaine (see comment for volume) (15cc+ 10cc nacl pf) Blood Aspirated: No Pain Paresthesia on Injection Noted: No Resistance on Injection: Normal Image Stored and Saved: Yes Events: Uneventful and Well Tolerated
[2023-08-19] MEDS: LACTATED RINGERS 1,000 ML IV ONE (11:34)
[2023-08-19] MEDS: ROPIVACAINE 1,100 MG, SODIUM CHLORIDE 0.9% 500 ML 330 ML, EMPTY PAIN BALL 1 EACH MISCELLANE PRN (12:16)
--- NOTE | 2023-08-19 12:20 | XR ---
EXAMINATION TYPE: XR knee limited LT DATE OF EXAM: 08/19/2023 CLINICAL HISTORY: Postoperative evaluation Two views of the left knee are submitted. Identified are changes of total knee arthroplasty with fem oral and tibial components appearing well seated. Postsurgical soft tissue changes are noted. Align ment is anatomic.
[2023-08-19] MEDS: HYDROmorphone 0.5 MG/0.5 ML SYRINGE IVP PRN (14:44)
[2023-08-19] MEDS: HYDROcodone/APAP 7.5-325MG 1 EACH TAB PO PRN (17:46)
--- NOTE | 2023-08-19 18:37 | OP ---
OPERATIVE REPORT DATE OF SERVICE : 08/19/2023 PHOTOGRAPHIC RESTORER: Chivo Brandon PA-C PREOPERATIVE DIAGNOSIS: Left knee osteoarthrosis. POSTOPERATIVE DIAGNOSIS: Left knee osteoarthrosis. PROCEDURE: Left total knee arthroplasty. ANESTHESIA: Spinal with sedation. ESTIMATED BLOOD LOSS: 100 mL. TOURNIQUET TIME: 51 minutes at 250 mmHg. COMPLICATIONS: None apparent. DRAINS: None. DISPOSITION: Postanesthesia care unit. INDICATIONS: Kathy is a very pleasant 63-year-old female with longstanding history of left knee pain. Her symptoms and examination are consistent with advanced left knee osteoarthrosis. She has been through significant operative management up to this point. Further treatment options were discussed and she has decided to go forward with the left total knee arthroplasty. The risks of procedure were discussed with her in detail. These risks include, but are not limited to risk of infection, nerve damage, bleeding, pain, and a small risk of deep vein thrombosis which could lead to fatal pulmonary embolism. There is also a small risk of loosening of the implant which could require revision operation. The patient understands these risks. All of her questions were answered to her satisfaction. An appropriate informed consent was obtained. DESCRIPTION OF PROCEDURE: The patient was identified in the preoperative holding area. Surgical site was marked by both the patient and myself. She was given 2 g of Ancef IV for prophylactic purposes. She was then transported to the operative suite. She was placed supine on the operating room table. Spinal anesthetic was then administered and dosed per the Anesthesia Department without apparent complication. An examination under anesthesia was then performed. The patient was 2 to 3 degrees shy of full extension. She had 100 degrees of flexion. Medial collateral ligament, lateral collateral ligament, and posterior cruciate ligaments were stable. Tourniquet was then placed high on the left upper thigh well-padded in preparation for surgery. The patient's left lower extremity was then prepped and draped in usual sterile fashion. Standard surgical pause was undertaken to ensure that we were operating the correct site and that appropriate preoperative antibiotics had been given. All staff in the room were in agreement, and we proceeded. The outlines of the patella were marked with a surgical pen. A planned 12 cm vertical incision centered over the patella was marked with a surgical pen. The leg was then exsanguinated with an Esmarch dressing. The knee was then flexed, and tourniquet was inflated to 250 mmHg. The total tourniquet time for the procedure was 51 minutes. Incision was then made with a 10-blade scalpel. Dissection was carried down sharply overlying fascia. Great care was taken to minimize the skin flaps. The knee was then exposed using a standard medial parapatellar approach. A small cuff of quadriceps tendon was then left for suturing. She was in a quite a bit of varus preoperatively. A standard medial release was then made. Superficial medial collateral ligament was dissected off the bone around to the posterior aspect of the proximal tibia. The medial meniscus was then excised as well. The lateral meniscus was also released anteriorly. The leg was then externally rotated. The patella was everted. The knee was flexed. Retractors were then placed to protect the collateral ligaments. I then proceeded to remove the infrapatellar fat pad. This was excised sharply tangentially with fibers of the patellar tendon. I then proceeded to remove the peripheral osteophytes. This was done with a rongeur. I then proceeded with the distal femoral resection. She did have near full extension. A planned 9 mm resection was then done. The femoral canal was then entered in the midline of the femur approximately 10 mm anterior to the origin of the posterior cruciate ligament. The chata was then advanced down the center of the femur and the chata was placed intramedullary. Based on the preoperative radiographs, the angle between the anatomic and mechanical axis of the femur was approximately 4 to 5 degrees. The valgus angle of the distal femoral cutting guide was then set at 4 degrees for the left knee. The distal femoral cutting guide was then advanced over the intramedullary chata. This was seated firmly against the femur. Then, as mentioned, I planned to take 9 mm off the distal femur. The cutting block was then secured onto the femur with pins. The jig was then removed. Additional cut was made through the slot of the block. The pins were removed and the distal femoral cutting block was removed. The accuracy of the distal femoral cuts was checked with 2 flat bars. I then proceeded with femoral sizing. Posterior referencing sizing guide was held firmly against the resected distal surface of the femur. The posterior condyles were resting on the posterior plane of the guide. The sizing stylus was then placed onto the anterior femur. The size was measured as a size 8. I then assessed for femoral rotation. Plan was for 3 degrees of external rotation. Three degrees of external rotation was placed onto the jig. These holes were then marked. I then confirmed the rotation by 3 separate methods. This was done using epicondylar axis as well as Whitesides line and posterior referencing. It was deemed that the external rotation was proper. I then went forward with placement of the femoral cutting block. This was placed over the previously placed pin holes. The Jose wing was then placed on the anterior slots to ensure that we would not notch the anterior femur at the anterior femoral cut. I then proceeded with the anterior femoral cut. This was flushed with the anterior cortex of the femur. The posterior cuts were then made followed by the anterior chamfer cut and then the posterior chamfer cut. The cutting block was then removed. Throughout the resection, the collateral ligaments were protected with retractors. I then placed a trial size 8 femur. It was slightly wide, but the narrow fit nicely and it fit flush with the distal end of the femur. The drill hole was then made. I then proceeded with the tibial cut. I planned for cruciate-retaining knee. The guide was placed and set for varus and valgus and for slope. The height was set for approximately 2 mm resection from the medial tibial plateau. This was the lower side. I was happy with the alignment and amount of resection. The cutting block was then pinned to the proximal tibia. The alignment chata was removed and the proximal tibia was resected with a reciprocating saw. Again, this was done with retractors, protecting the collateral ligaments as well as the posterior cruciate ligament. I then proceeded to evaluate the flexion and extension gaps. A 10 mm block was then placed. The flexion and extension gaps were equal. I then proceeded with resection of the posterior osteophytes. She had very minimal posterior osteophytes. This was done using a curved osteotome. This resected the posterior osteophytes and posterior capsular stripping was done off the posterior aspect of the femur at this time. The osteophytes were then removed. I then proceeded with resection of the patella. The thickness of the patella was measured using the caliper. The thickness was 22 mm. The thickness of the anticipated patellar dome was taken into account. The resection was then performed and confirmed to be equal in 4 quadrants using a caliper. Approximately 14 mm of bone remained after resection. A 29 x 8 standard patellar trial was then placed. The holes were drilled and the trial was then placed. I then proceeded with sizing the tibial plate. A size D tibial plate fit very nicely. I then placed the trial femur, the tibial tray, and the patellar button. A 10 mm trial tibial insert was also placed. The components fit very nicely. She had full extension and flexion. The extension and flexion gaps were equal and stable to both varus and valgus stress. The patella tracked appropriately. The tibial tray rotation was then marked with a Bovie. This was externally rotated properly. I then proceeded with tibial preparation. I first drilled the femoral holes and removed the femoral component. The tibial tray was then set for proper external rotation as well as medial and lateral placement onto the tibia. It was then pinned into place. I then proceeded with punching the keel. I then decided to proceed with cementing of all our components. The knee was thoroughly irrigated with sterile saline solution via pulse lavage. The lateral genicular artery was identified and cauterized. All blood was removed from the bone of the tibia, femur, and patella with pulse lavage. I then proceeded with cementing. Two packs of antibiotic bone cement prepared on the back table by surgical assistant certified. I then proceeded with cementing the tibia first. The cement was impacted in the keel as well as deeply seated in the bone. A second coat of cement was then placed. The tibia was then impacted into place. Excess cement was removed with Cushings and jokers. I then proceeded with cementing of the femoral component. The femoral component was also cemented using standard technique. Excess cement was removed. A 10 mm trial insert was then placed in the knee. It was brought into full extension with a constant axial load placed until the cement had hardened. The patellar component was then cemented. This held firmly with a compressive device until the cement had dried. When the cement had dried, the knee was taken out of extension. All excess cement was removed from around the prosthesis. I then trialed a 10 mm insert. Flexion and extension gaps were appropriate. I then continued to trial with a 12 and then a 14 mm insert. The flexion and extension gaps felt much better. The knee was stable with a 14 mm insert. It came into full extension. I decided to go forward with the 14 mm Medial Congruent cross-linked cruciate-retaining tibial insert. Polyethylene was then placed on the tibial tray and locked into place. The knee was then reduced. The knee was again further irrigated with sterile saline solution with antibiotic added. The tourniquet was then deflated. Total tourniquet time for the procedure was 51 minutes at 250 mmHg. The final components were Becky Persona size 8 narrow cruciate-retaining femoral component, size D tibial tray, a 14 mm Medial Congruent cruciate-retaining polyethylene insert, and a 29 x 8 mm patella. I then proceeded with closure. Again, the knee was thoroughly irrigated. The quadriceps tendon and the medial retinaculum were reapproximated with #2 Ethibond suture. The extensor mechanism was then closed with a running #2 Quill suture. Subcutaneous tissues were closed with 2-0 Vicryl interrupted suture. The skin was closed with a running 3-0 Quill suture. Dermabond was applied to the incision. Sterile compressive dressings were applied. All sponge and needle counts were deemed correct prior to closure. The patient tolerated the procedure without apparent complication. She was transferred to the recovery room in stable condition. MMODL / IJN: [id number] /
[2023-08-19] MEDS: SENNOSIDES-DOCUSATE SODIUM 1 EACH TAB PO SCH (20:43)
[2023-08-19] MEDS: ASPIRIN 81 MG PO SCH (20:43)
[2023-08-20] MEDS: diazePAM 5 MG TAB PO PRN (00:18)
[2023-08-20] MEDS: LEVOTHYROXINE 75 MCG TAB PO SCH (05:36)
[2023-08-20] MEDS: LEVOTHYROXINE 100 MCG TAB PO SCH (05:36)
[2023-08-20 07:46] VITALS: BP 96/61; PULSE 71; RESP 18; TEMP 98.4
--- NOTE | 2023-08-20 09:11 | P.PN ---
Progress Note - Text Progress Note Date: 08/20/23 Postoperative day # 1 status post total knee arthroplasty, and adductor canal catheter placed for postoperative analgesia, currently at ropivacaine 0.2% 8 mL per hour and continuous infusion, patient using oral pain medication and IV dilaudid for breakthrough pain. Assessment and plan= Acute postoperative pain, adductor canal catheter for pain control,we'll continue the same management.
[2023-08-20 09:12] LABS: Basophils # (A) 0.04 X 10*3/uL (0.00-0.10); Basophils % (A) 0.4 %; Eosinophils # (A) 0.12 X 10*3/uL (0.04-0.35); Eosinophils % (A) 1.1 %; HCT 33.6 % (37.2-46.3); HGB 10.3 g/dL (12.0-15.0); Lymphocytes # (A) 2.16 X 10*3/uL (0.90-5.00); Lymphocytes % (A) 20.2 %; MCH 25.8 pg (27.0-32.0); MCHC 30.7 g/dL (32.0-37.0); MCV 84.2 FL (80.0-97.0); Mean Platelet Volume 12.4 FL (9.5-12.2); Monocytes # (A) 1.13 X 10*3/uL (0.20-1.00); Monocytes % (A) 10.6 %; NRBC Per 100 WBC 0 X 10*3/uL (0.00-0.01); Neutrophils # (A) 7.17 X 10*3/uL (1.80-7.70); Neutrophils % (A) 67.2 %; Platelet Count 209 X 10*3/uL (140-440); RBC 3.99 X 10*6/uL (4.10-5.20); RDW 15.3 % (11.5-14.5); WBC 10.67 X 10*3/uL (4.50-10.00)
[2023-08-20] MEDS: MAGNESIUM OXIDE 400 MG TAB PO SCH (09:45)
[2023-08-20] MEDS: buPROPion XL 300 MG TAB.ER.24H PO SCH (09:45)
[2023-08-20] MEDS: ALPRAZolam 0.25 MG TAB PO SCH (09:45)
[2023-08-20] MEDS: CHOLECALCIFEROL 25 MCG (1000 IU) TABLET PO SCH (09:45)
[2023-08-20] MEDS: CITALOPRAM HYDROBROMIDE 10 MG TAB PO SCH (09:45)
[2023-08-20] MEDS: LORATADINE 10 MG TAB PO SCH (09:45)
--- NOTE | 2023-08-20 11:18 | P.DS ---
Providers Attending physician: Houston Cosby Consults: 08/19/23 09:29 Consult Physician Routine Consulting Provider: Jolanta Rivas Consult Reason/Comments: post op medical management Do you want consulting provider notified?: Yes Primary care physician: Jolanta Rivas - Discharge Diagnosis(es) (1) Osteoarthritis of left knee Patient was admitted to the OR on 08/19/23 to undergo a left total knee arthroplasty. She had failed conservative measures as an outpatient and desired to proceed with elective surgery after given informed consent. She underwent the above procedure which he tolerated well without complication. Postoperative hospital course has remained without complication. On day of discharge she is afebrile, vital signs stable, labs within acceptable ranges, tolerating by mouth meds and diet, voiding without difficulty, positive flatus, denies abdominal pain or calf pain, pain is controlled on oral pain medication and has no new complaints. Wound is benign, neurovascular status is intact, calf is soft and nontender, abdomen soft and nontender. Review of systems is negative for numbness, tingling, fever, chills, chest pain, shortness of breath, nausea, vomiting, dizziness, headaches, slurred speech or other. Current Visit: Yes Status: Acute Priority: Medium Procedures: Left TKA Patient Condition at Discharge: Good Plan - Discharge Summary Discharge Rx Participant: Yes New Discharge Prescriptions: New Aspirin [Adult Low Dose Aspirin EC] 81 mg PO BID #60 tab HYDROcodone/APAP 7.5-325MG [[place] 7.5-325] 1 - 2 each PO Q6HR PRN #42 tab PRN Reason: Pain Ondansetron [Zofran] 4 mg PO Q8HR PRN #21 tab PRN Reason: Nausea Docusate [Colace] 100 mg PO BID #60 capsule No Action Magnesium 200 mg PO DAILY Cholecalciferol (Vitamin D3) [Vitamin D3] 2,000 unit PO DAILY Loratadine [Claritin] 10 mg PO DAILY Citalopram Hydrobromide [CeleXA] 10 mg PO DAILY buPROPion XL [Wellbutrin XL] 300 mg PO DAILY ALPRAZolam [Xanax] 0.25 mg PO QAM Meloxicam [Mobic] 15 mg PO DAILY Levothyroxine Sodium [Synthroid] 200 mcg PO SUWE Levothyroxine Sodium [Synthroid] 175 mcg PO MOTUTHFRSA Discharge Medication List Cholecalciferol (Vitamin D3) [Vitamin D3] 2,000 unit PO DAILY 03/01/18 [History] Magnesium 200 mg PO DAILY 03/01/18 [History] Loratadine [Claritin] 10 mg PO DAILY 11/08/19 [History] ALPRAZolam [Xanax] 0.25 mg PO QAM 08/17/23 [History] Citalopram Hydrobromide [CeleXA] 10 mg PO DAILY 08/17/23 [History] Levothyroxine Sodium [Synthroid] 175 mcg PO MOTUTHFRSA 08/17/23 [History] Levothyroxine Sodium [Synthroid] 200 mcg PO SUWE 08/17/23 [History] Meloxicam [Mobic] 15 mg PO DAILY 08/17/23 [History] buPROPion XL [Wellbutrin XL] 300 mg PO DAILY 08/17/23 [History] Aspirin [Adult Low Dose Aspirin EC] 81 mg PO BID #60 tab 08/20/23 [Rx] Docusate [Colace] 100 mg PO BID #60 capsule 08/20/23 [Rx] HYDROcodone/APAP 7.5-325MG [[place] 7.5-325] 1 - 2 each PO Q6HR PRN #42 tab 08/20/23 [Rx] Ondansetron [Zofran] 4 mg PO Q8HR PRN #21 tab 08/20/23 [Rx] Follow up Appointment(s)/Referral(s): Houston Cosby MD [STAFF PHYSICIAN] - 08/27/23 8:15 am Activity/Diet/Wound Care/Special Instructions: *Attend outpatient physical therapy at [facility] on [facility] as set up prior to surgery. Discharge Disposition: HOME WITH HOME HEALTH SERVICES
[2023-08-20] MEDS ORDERED: MULTIVITAMINS, THERA 1 EACH TAB PO SCH (12:00)
--- NOTE | 2023-08-20 15:39 | P.CONS ---
History of Present Illness - Reason for Consult Consult date: 08/19/23 Requesting physician: Houston Cosby - Chief Complaint Status post left total knee arthroplasty. - History of Present Illness HISTORY OF PRESENT ILLNESS: This is a 63-year-old female with a previous medical history significant for hypothyroidism, history of anxiety, depressive disorder, history of left breast cancer status post lumpectomy with chemo and radiation therapy back in 2004, diverticulosis, obstructive sleep apnea as well as restless leg syndrome, osteoarthritis, patient underwent left total knee arthroplasty that was done by Dr. Cosby, we were asked to see the patient for postoperative medical management. Patient is lying down in bed in no apparent distress, she denies any chest pain, shortness of breath, she has no abdominal pain, nausea vomiting or diarrhea, she seems to be tolerating her treatment very well, her home medications were re conciled and reviewed. REVIEW OF SYSTEMS: Constitutional: No documented fever, no chills, no night sweats. No weight change. No weakness, fatigue or lethargy. No daytime sleepiness. EENT: No headache. No blurred vision or double vision, no loss of vision. No loss of Hearing, no ringing in the ears, no dizziness. No nasal drainage or congestion. No epistaxis. No sore throat. Lungs: No shortness of breath, no cough, no sputum production. No wheezing. Reports dyspnea with activity. Cardiovascular: No chest pain, no lower extremity edema. No palpitations. No paroxysmal nocturnal dyspnea. No orthopnea. No lightheadedness or dizziness. No syncopal episodes. Abdominal: Reports abdominal pain. No nausea, vomiting. No diarrhea. No constipation. No bloody or tarry stools reports loss of appetite. Genitourinary: No dysuria, increased frequency, urgency. No urinary retention. Musculoskeletal: No myalgias. No muscle weakness, no gait dysfunction, no frequent falls. No back pain. No neck pain. Integumentary: left knee wound is covered with JOSE wrap, no lesions. No rash or pruritus. No unusual bruising. No change in hair or nails. Neurologic: No aphasia. No facial droop. No change in mentation. No head injury. No headache. No paralysis. No paresthesia. Psychiatric: No depression. No anxiety. No mood swings. Endocrine: No abnormal blood sugars. No weight change. PAST MEDICAL HISTORY: Hypothyroidism. Anxiety disorder. Depressive disorder. Obstructive sleep apnea. Restless leg syndrome. History of breast cancer status post left lumpectomy with chemoradiation therapy in 2004. Diverticulosis of the colon. Osteoarthritis. Thyroid cancer status post thyroidectomy. PAST SURGICAL HISTORY: Cholecystectomy. Thyroidectomy due to thyroid cancer. Left lumpectomy due to breast cancer 2004 post chemoradiation therapy. Dilatation and curettage. Left ankle ORIF. Left total knee arthroplasty. Tonsillectomy. Colonoscopy 11/10/2019. . SOCIAL HISTORY: Patient smoked about a pack every day since the age of 16 and quit about 3 years ago, she denies any alcohol ingestion, no drug use or abuse, she lives with her . FAMILY HISTORY: Father at age of 77 he had history of head and neck cancer and then he ended up with pancreatic cancer and stomach cancer, mother at age of 79 from multiple sclerosis and she had a history of breast cancer, patient has a twin sister who has anxiety depression and alcoholism the other sister with breast cancer and melanoma, patient has 2 sons overweight 1 post gastric bypass surgery. PHYSICAL EXAMINATION: General: 63-year-old female laying down in bed in no apparent distress. HEENT: Head is atraumatic, normocephalic, pupils were equal round reactive to light and recommendation, extraocular muscle movement were intact, sclera nonicteric, conjunctivae were pale, mucous membranes of the mouth are somewhat dry. Neck: Supple, no JVP, normal carotid upstroke bilaterally, no lymphadenopathy. Chest: Decreased breath sounds at the bases, few rhonchi, no expiratory wheezes, no chest wall tenderness, no intercostal retractions. Heart: First heart sound is normal, second heart sound is normal there is no gallop or murmur Abdomen: Soft, nontender, nondistended, positive bowel sounds. Extremities: There is no edema no calf tenderness DP +2 bilaterally, left leg is wrapped with JOSE wrap there is on -Q pump in place Neurologic examination: Patient is awake alert and oriented X 3, cranial nerves II-12 appear grossly intact, muscle power were 5 out of 5 in upper extremities and 5 out of 5 in bilateral lower extremities, deep tendon reflexes normal bilaterally. ASSESSMENT AND PLAN: 1. Postoperative day #0 status post left total knee arthroplasty. Patient was instructed to use the incentive spirometer to reduce the incidence of atelectasis and healthcare associated pneumonia, continue with DVT prophylaxis as per orthopedic surgery she was started on aspirin 81 mg orally twice every day, early ambulation, physical therapy evaluation tomorrow morning, continue with current pain management as outlined by orthopedic surgery, increase activity as tolerated. 2. History of thyroid cancer status post thyroidectomy currently hypothyroid. Continue patient on levothyroxine 175 mcg every day and 200 mcg on Wednesday and Wednesday monitor the patient TSH and free T4. 3. History of anxiety and depressive disorder. Continue Wellbutrin XL 300 mg once every day as well as citalopram 10 mg once every day, monitor the patient very closely during her hospital stay. 4. History of osteoarthritis. Continue patient on current pain management. 5. History of breast cancer status post left lumpectomy post chemoradiation therapy back in 2004 currently in remission. 6. History of diverticulosis her colonoscopy is up-to-date 11/10/2019. We will repeat next year. 7. History of obstructive sleep apnea. Continue with current CPAP. 8. History of restless leg syndrome. Stable. 9. Vitamin D deficiency. Continue vitamin D supplement. 10. DVT prophylaxis. Currently on aspirin 81 mg orally twice every day., Early ambulation. 11. GI prophylaxis. Continue PPI. 12. Thank you Dr. Cosby for allowing me to participate in the care of your patient we will follow the patient with you. Past Medical History Past Medical History: Cancer, Osteoarthritis (OA), Sleep Apnea/CPAP/BIPAP, Thyroid Disorder Additional Past Medical History / Comment(s): Hx. left breast cancer 2004-had surg. & chemo & radiation, thyroid cancer both age 44, uses CPAP History of Any Multi-Drug Resistant Organisms: None Reported Past Surgical History: Breast Surgery, Section, Cholecystectomy, Orthopedic Surgery, Tonsillectomy Additional Past Surgical History / Comment(s): Left breast lumpectomy, total thyroidectomy, left rotator cuff and left ankle Past Anesthesia/Blood Transfusion Reactions: No Reported Reaction Smoking Status: Former smoker - Past Family History Mother Family Medical History: No Reported History Medications and Allergies Home Medications Medication Instructions Recorded Confirmed Type Cholecalciferol (Vitamin D3) 2,000 unit PO DAILY 03/01/18 08/19/23 History [Vitamin D3] Magnesium 200 mg PO DAILY 03/01/18 08/19/23 History Loratadine [Claritin] 10 mg PO DAILY 11/08/19 08/19/23 History ALPRAZolam [Xanax] 0.25 mg PO QAM 08/17/23 08/19/23 History Citalopram Hydrobromide [CeleXA] 10 mg PO DAILY 08/17/23 08/19/23 History Levothyroxine Sodium [Synthroid] 175 mcg PO MOTUTHFRSA 08/17/23 08/19/23 History Levothyroxine Sodium [Synthroid] 200 mcg PO SUWE 08/17/23 08/19/23 History Meloxicam [Mobic] 15 mg PO DAILY 08/17/23 08/19/23 History buPROPion XL [Wellbutrin XL] 300 mg PO DAILY 08/17/23 08/19/23 History Aspirin [Adult Low Dose Aspirin EC] 81 mg PO BID #60 tab 08/20/23 Rx Docusate [Colace] 100 mg PO BID #60 capsule 08/20/23 Rx Multivitamins, Thera [Multivitamin 1 each PO DAILY@1200 tab 08/20/23 Rx (formulary)] Ondansetron [Zofran] 4 mg PO Q8HR PRN #21 tab 08/20/23 Rx oxyCODONE-APAP 7.5-325MG [Percocet 1 tab PO Q4HR PRN #42 tab 08/20/23 Rx 7.5-325 mg] Allergies Allergy/AdvReac Type Severity Reaction Status Date / Time levofloxacin [From Levaquin] AdvReac Confusion Verified 08/19/23 07:56 Physical Exam Vitals: Vital Signs Temp Pulse Pulse Pulse Resp BP BP 08/19/23 14:32 98.1 F 67 18 112/69 08/19/23 14:06 65 16 114/70 08/19/23 13:35 59 L 16 108/70 08/19/23 13:20 59 L 16 105/67 08/19/23 13:06 63 16 107/71 08/19/23 12:50 65 16 120/73 08/19/23 12:35 62 16 120/71 08/19/23 12:20 60 16 123/76 08/19/23 12:04 60 16 122/71 08/19/23 11:49 97.6 F 67 14 124/72 08/19/23 08:29 98.0 F 65 18 123/79 Pulse Ox 08/19/23 14:32 92 L 08/19/23 14:06 96 08/19/23 13:35 97 08/19/23 13:20 96 08/19/23 13:06 95 08/19/23 12:50 95 08/19/23 12:35 97 08/19/23 12:20 98 08/19/23 12:04 96 08/19/23 11:49 92 L 08/19/23 08:29 96 Intake and Output 08/19/23 08/19/23 08/19/23 06:59 14:59 22:59 Intake Total 1151 Output Total 100 Balance 1051 Intake: IV 1151 Output: Estimated Blood Loss 100 Other: Weight 97.9 kg Results CBC & Chem 7: 08/20/23 06:11
[2023-08-22] MEDS ORDERED: LEVOTHYROXINE 100 MCG TAB PO SCH (06:30)
== END 2023-08-20 12:43 | disposition home health service (06) ==
LOC: OR 07:30 → 4SSUR 13:44 → OR 08-20 12:43
PROVIDERS: ATTEND Orthopaedic Surgery Sports Medicine
DX: M17.12 Unilateral primary osteoarthritis, left knee (principal); M21.162 Varus deformity, not elsewhere classified, left knee; G89.18 Other acute postprocedural pain; E03.9 Hypothyroidism, unspecified; E78.2 Mixed hyperlipidemia; G25.81 Restless legs syndrome; F32.A Depression, unspecified; F41.9 Anxiety disorder, unspecified; G47.33 Obstructive sleep apnea (adult) (pediatric); I65.23 Occlusion and stenosis of bilateral carotid arteries; K57.30 Diverticulosis of large intestine without perforation or abscess without bleeding; M47.816 Spondylosis without myelopathy or radiculopathy, lumbar region; Z79.890 Hormone replacement therapy; Z79.899 Other long term (current) drug therapy; Z79.1 Long term (current) use of non-steroidal anti-inflammatories (NSAID); Z88.1 Allergy status to other antibiotic agents; Z87.891 Personal history of nicotine dependence; Z79.82 Long term (current) use of aspirin
CPT/HCPCS: 97161; 64999; 64448; 85025; 73560; 27447; C1776; C1713; C1751; J2250; J1100; J0690 ×3; J2405; J3010; J2795; J1170 ×2

== ENCOUNTER → 2024-01-10 | Outpatient (CLI) | payer MEDICAID ==
--- NOTE | 2024-01-10 13:49 | XR ---
EXAMINATION TYPE: XR knee limited LT DATE OF EXAM: 01/10/2024 CLINICAL HISTORY: Postoperative evaluation Two views of the left knee are submitted. Identified are changes of total knee arthroplasty with fem oral and tibial components appearing well seated. Postsurgical soft tissue changes are noted. Align ment is anatomic.
== END | disposition home or self-care (01) ==
LOC: RADXRMAIN 13:25
PROVIDERS: ATTEND Orthopaedic Surgery Sports Medicine
DX: M17.12 Unilateral primary osteoarthritis, left knee (principal); Z96.652 Presence of left artificial knee joint

== ENCOUNTER → 2024-01-10 | Outpatient (CLI) | payer MEDICAID ==
--- NOTE | 2024-01-12 12:27 | MM ---
Reason for Exam: Screening (asymptomatic). Last screening mammogram was performed 12 month(s) ago. Patient History: Menarche at age 13. First Full-Term at age 19. Postmenopausal. Breast cancer, left, age 44. Other cancer, age 44. Previous chest radiation therapy at age 44. Previous chemotherapy at age 44. Patient used Hormonal Contraceptives for 24 years. 2004, Lumpectomy on the Left side. Core Biopsy on the Left side. Core Biopsy on the Left side. Core Biopsy on the Left side. 03/02/2018, Benign Core Biopsy on the right side. 03/02/2018, Benign Core Biopsy on the right side. 10/03/2004, Stereotactic Core Biopsy on the Left side. 10/03/2004, Malignant Stereotactic Core Biopsy on the left side. 10/03/2004, Malignant Stereotactic Core Biopsy on the left side. 2004, Chemotherapy. 2004, Radiation Therapy on the left side. Sister had breast cancer, age 48. Mother had breast cancer, age 68. Mother tested for BRCA2 outcome was negative. Prior Study Comparison: 12/13/2020 Bilateral Screening Mammogram, [facility]. 01/06/2022 Bilateral MG 3D screening mammo w/cad, [facility]. 01/07/2023 Bilateral MG 3D screening mammo w/cad, [facility]. Tissue Density: There are scattered areas of fibroglandular density. Findings: Analyzed By CAD. Bilateral breast biopsy clips. Right breast: There is no suspicious group of microcalcifications or new suspicious mass. Left breast: There is no suspicious group of microcalcifications or new suspicious mass. Overall Assessment: Benign, BI-RAD 2 Management: Screening Mammogram of both breasts in [address] [facility] will attempt to contact patient to return for supplemental views and ultrasound if indicated. Patient should continue monthly self-breast exams. A clinical breast exam by your physician is recommended on an annual basis. This exam should not preclude additional follow-up of suspicious palpable abnormalities. Note on Gilma scores and lifetime risk: 1. A Gilma score greater than 3% is considered moderate risk. If this is the case, consider specialist referral to assess eligibility for a risk reducing agent. 2. If overall lifetime risk for the development of breast cancer is 20% or higher, the patient may qualify for future screening with alternating mammogram and breast MRI. Electronically signed and approved by: Murtaza Blanco DO
== END | disposition home or self-care (01) ==
LOC: RADMAMWWP 13:06
PROVIDERS: ATTEND Internal Medicine
DX: Z12.31 Encounter for screening mammogram for malignant neoplasm of breast (principal); R92.323 Mammographic fibroglandular density, bilateral breasts; Z78.0 Asymptomatic menopausal state; Z80.3 Family history of malignant neoplasm of breast
CPT/HCPCS: 77063; 77067

== ENCOUNTER → 2024-01-26 | Outpatient (CLI) | payer MEDICAID | LOC: 3 N SLEEP 15:00 | PROVIDERS: ATTEND Internal Medicine | CPT/HCPCS: 99212 ==

== ENCOUNTER → 2024-03-28 | Outpatient (CLI) | payer MEDICAID ==
--- NOTE | 2024-03-29 11:40 | CA ---
Transthoracic Echo Report Name: Kathy Solorzano Age: 63 Gender: F : 1960 Exam Date: 03/28/2024 17:27 Exam Location: [place] [facility] Ht (in): 66 Wt (lb): 230 Ordering Physician: Jolanta Rivas MD Attending/Referring Phys: Virology Teacher Ronit Matson RDCS Procedure CPT: Indications: I34.0 Cardiac Hx: Technical Quality: Fair Contrast 1: Total Dose (mL): Contrast 2: Total Dose (mL): MEASUREMENTS (Male / Female) Normal Values 2D ECHO LV Diastolic Diameter PLAX 4.4 cm 4.2 - 5.9 / 3.9 - 5.3 cm LV Systolic Diameter PLAX 3.0 cm IVS Diastolic Thickness 1.2 cm 0.6 - 1.0 / 0.6 - 0.9 cm LVPW Diastolic Thickness 1.3 cm 0.6 - 1.0 / 0.6 - 0.9 cm LV Relative Wall Thickness 0.5 RV Internal Dim ED PLAX 3.1 cm LA Volume 74.0 cm??? 18 - 58 / 22 - 52 cm??? LA Volume Index 32.9 cm???/m??? 16 - 28 cm???/m??? M-MODE Aortic Root Diameter MM 3.3 cm LA Systolic Diameter MM 4.9 cm LA Ao Ratio MM 1.5 AV Cusp Separation MM 1.9 cm DOPPLER AV Peak Velocity 116.8 cm/s AV Peak Gradient 5.5 mmHg AV Mean Velocity 78.6 cm/s AV Mean Gradient 2.8 mmHg AV Velocity Time Integral 22.1 cm LVOT Peak Velocity 83.4 cm/s LVOT Peak Gradient 2.8 mmHg LVOT Velocity Time Integral 15.7 cm MV Area PHT 2.4 cm??? Mitral E Point Velocity 57.0 cm/s Mitral A Point Velocity 87.4 cm/s Mitral E to A Ratio 0.7 MV Deceleration Time 311.3 ms MV E' Velocity 3.4 cm/s Mitral E to MV E' Ratio 16.9 TR Peak Velocity 207.4 cm/s TR Peak Gradient 17.2 mmHg Right Ventricular Systolic Press 21.4 mmHg FINDINGS Left Ventricle Mildly increased left ventricular wall thickness. Left ventricular cavity size normal. Normal left ventricular systolic function with no obvious regional wall motion abnormalities. Left ventricular ejection fraction is estimated at 55-60 %. Grade 1 diastolic dysfunction. Right Ventricle Normal right ventricular size. Right Atrium Mild right atrial dilatation. Left Atrium Mildly increased left atrial volume. Mildly increased left atrial area. Mitral Valve Structurally normal mitral valve. Mitral annular calcification. Mild mitral regurgitation. Aortic Valve Trileaflet aortic valve. No aortic valve stenosis or regurgitation. Tricuspid Valve Structurally normal tricuspid valve. Mild tricuspid regurgitation. Pulmonic Valve Structurally normal pulmonic valve. Pericardium No pericardial effusion. Aorta Normal size aortic root and proximal ascending aorta. CONCLUSIONS Left ventricular ejection fraction 55-60% Mildly increased left ventricular wall thickness Mild mitral regurgitation Mild tricuspid regurgitation RVSP 21 Previewed by: Dr. Will Stone DO (Electronically Signed) Final Date: 29 March 2024 11:40
--- NOTE | 2024-03-30 08:59 | US ---
EXAMINATION TYPE: US carotid duplex BILAT DATE OF EXAM: 03/28/2024 COMPARISON: 01/08/2022 CLINICAL INDICATION: Female, 63 years old with history of I34.0,I65.23 CAROTID STENOSIS; No new sympt oms TECHNIQUE: Grayscale, color Doppler and spectral Doppler evaluation of the bilateral carotid systems and vertebral arteries.Indirect Doppler criteria was utilized. FINDINGS: EXAM MEASUREMENTS: RIGHT: Peak Systolic Velocity (PSV) cm/sec ----- Right CCA: 82.2 ----- Right ICA: 72.0 ----- Right ECA: 93.1 ICA/CCA ratio: 0.9 RIGHT: End Diastole cm/sec ----- Right CCA: 20.4 ----- Right ICA: 26.5 ----- Right ECA: 20.4 LEFT: Peak Systolic Velocity (PSV) cm/sec ----- Left CCA: 79.5 ----- Left ICA: 105.0 ----- Left ECA: 86.6 ICA/CCA ratio: 1.3 LEFT: End Diastole cm/sec ----- Left CCA: 17.0 ----- Left ICA: 44.4 ----- Left ECA: 19.2 VERTEBRALS (direction of flow): Right Vertebral: Unable to visualize due to neck girth Left Vertebral: Antegrade Rhythm: Normal VASCULAR TECHNOLOGIST SONOGRAPHER NOTES: No significant velocity elevations. Unable to visualize right vert. IMPRESSION: Right: Less than 50% stenosis of the carotid bifurcation. Normal (no stenosis)=ICA PSV < 125 cm/s: ra jackie < 2.0: ICA EDV<40 cm/s. Left: Less than 50% stenosis of the carotid bifurcation. Normal (no stenosis)=ICA PSV < 125 cm/s: rat io < 2.0: ICA EDV<40 cm/s. Criteria for Assigning % of Stenosis / Diameter reduction (Estimation based on the indirect measurements of the internal carotid artery velocities (ICA PSV). 1. Normal (no stenosis)=ICA PSV < 125 cm/s: ratio < 2.0: ICA EDV<40 cm/s. 2. Less than 50% stenosis=ICA PSV < 125 cm/s: ratio < 2.0: ICA EDV<40 cm/s. 3. 50 to 69% stenosis=ICA PSV of 125 to 230 cm/s: ration 2.0 ? 4.0: ICA EDV 40-100 cm/s. 4. Greater than 70% stenosis to near occlusion= ICA PSV > 230 cm/s: ratio > 4.0: ICA EDV > 100 cm/s. 5. Near occlusion= ICA PSV velocities may be low or undetectable: variable ratio and ICA EDV. 6. Total occlusion=unable to detect flow. [facility], , 03/30/2024 8:57 AM
== END ==
LOC: RADUSWWP 16:25
PROVIDERS: ATTEND Internal Medicine
CPT/HCPCS: 93306; 93880

== ENCOUNTER → 2024-03-30 | Outpatient (CLI) | payer MEDICAID ==
--- NOTE | 2024-03-30 14:55 | XR ---
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 TECHNIQUE: XR knee limited LT; examined in Frontal, lateral and oblique projections. FINDINGS: Status post total knee arthroplasty changes with hardware in appropriate alignment and in tact. No evidence of fracture. IMPRESSION: Status post total knee arthroplasty changes with hardware intact and appropriate alignment. No fractu res identified. [facility], , 03/30/2024 12:02 PM
== END | disposition home or self-care (01) ==
LOC: RADXRMAIN 11:26
PROVIDERS: ATTEND Internal Medicine

== ENCOUNTER → 2024-04-24 | Outpatient (CLI) | payer MEDICAID ==
[2024-04-24 10:11] LABS: Basophils # (A) 0.06 X 10*3/uL (0.00-0.10); Basophils % (A) 0.8 %; Eosinophils # (A) 0.37 X 10*3/uL (0.04-0.35); Eosinophils % (A) 4.9 %; HCT 37.1 % (37.2-46.3); HGB 11.1 g/dL (12.0-15.0); Lymphocytes # (A) 1.57 X 10*3/uL (0.90-5.00); Lymphocytes % (A) 20.7 %; MCH 23.5 pg (27.0-32.0); MCHC 29.9 g/dL (32.0-37.0); MCV 78.4 FL (80.0-97.0); Monocytes # (A) 0.81 X 10*3/uL (0.20-1.00); Monocytes % (A) 10.7 %; NRBC Per 100 WBC 0 X 10*3/uL (0.00-0.01); Neutrophils # (A) 4.75 X 10*3/uL (1.80-7.70); Neutrophils % (A) 62.6 %; Platelet Count 216 X 10*3/uL (140-440); RBC 4.73 X 10*6/uL (4.10-5.20); RDW 16.7 % (11.5-14.5); WBC 7.58 X 10*3/uL (4.50-10.00)
[2024-04-24 10:41] LABS: ALT 16 U/L (8-44); AST 18 U/L (13-35); Albumin 3.9 g/dL (3.8-4.9); Albumin/Globulin Ratio 1.86 Ratio (1.60-3.17); Alkaline Phosphatase 77 U/L (41-126); BUN/Creat Ratio 14.57 Ratio (12.00-20.00); Blood Urea Nitrogen 10.2 mg/dL (9.0-27.0); Calcium 9.4 mg/dL (8.7-10.3); Carbon Dioxide 26.4 mmol/L (21.6-31.8); Chloride 106 mmol/L (96-109); Chol/HDL Ratio 3.97 Ratio; Globulin 2.1 g/dL (1.6-3.3); Glucose 103 mg/dL (70-110); LDL Cholesterol,Calculated 111.8 mg/dL (0.0-131.0); Sodium 141 mmol/L (135-145); Total Bilirubin 0.3 mg/dL (0.3-1.2)
== END | disposition home or self-care (01) ==
LOC: LABWHC1 07:05
PROVIDERS: ATTEND Internal Medicine
DX: Z00.00 Encounter for general adult medical examination without abnormal findings (principal); E78.2 Mixed hyperlipidemia; E03.9 Hypothyroidism, unspecified; G25.81 Restless legs syndrome
CPT/HCPCS: 36415; 80053; 80061; 82306; 83036; 84443; 85025

== ENCOUNTER → 2024-05-18 | Outpatient (CLI) | payer MEDICAID ==
[2024-05-18 15:59] LABS: Reticulocyte % 1.25 % (0.10-1.80)
[2024-05-18 16:21] LABS: % Iron Saturation 4.9 (12.00-45.00); Ferritin 9.7 ng/mL (10.0-291.0)
== END | disposition home or self-care (01) ==
LOC: LABWHC1 07:54
PROVIDERS: ATTEND Internal Medicine
DX: D50.0 Iron deficiency anemia secondary to blood loss (chronic) (principal)
CPT/HCPCS: 36415; 82607; 82728; 82746; 83010; 83540; 83550; 83615; 85045

== ENCOUNTER → 2024-06-21 | Day surgery (SDC) | payer MEDICAID ==
[2024-06-19 09:40] VITALS: BMI 39.9
[~2024-06-21] MED LIST changes: +LACTATED RINGERS 1,000 ML IV SCH; +LIDOCAINE 1% (10MG/ML) FOR IV START INTRADERMA PRN; +LIDOCAINE 1% INJ 10MG/ML (20 ML MDV) ONE; +PROPOFOL 10 MG/ML 20 ML VIAL IV ONE; -TRANEXAMIC 1,000 MG/100ML-NACL 1,000 MG in SALINE 1 100ML.BAG IVPB PRN
[2024-06-21] MEDS: SODIUM CHLORIDE 0.9% 1,000 ML IV ONE (07:53)
[2024-06-21 07:54] VITALS: TEMP 97
--- NOTE | 2024-06-21 08:38 | P.PCN ---
Date of Procedure: 06/21/24 Procedure(s) Performed: Brief history: Patient is a pleasant 64-year-old pleasant white female scheduled for an elective upper endoscopy as well as colonoscopy as a part of evaluation of iron deficiency anemia Procedure performed: Esophagogastroduodenoscopy with biopsy Colonoscopy with biopsy Preoperative diagnosis: Iron deficiency anemia [place] [facility] [place]: After informed consent was obtained from the patient was brought into the endoscopy unit and IV sedation was administered by anesthesia under continuous monitoring. Initially upper endoscopy was done. The Olympus GF 160 video endoscope was inserted inserted into the mouth and esophagus intubated without any difficulty and was gradually advanced into the stomach and duodenum and carefully examined. The bulb and second part of the duodenum appeared normal. Biopsies were done from the duodenum to evaluate for celiac disease the scope was then withdrawn into the stomach adequately insufflated with air and upon careful examination the antrum and mild diffuse gastritis and biopsies were done from this area. Mucosa body, cardia and fundus appeared normal. The scope was then withdrawn into the esophagus. Small hiatal hernia seen. The GE junction was located at 40 cm to the incisors. It appeared regular with no erythema erosions or ulcerations. Rest of the esophagus appeared normal. Patient tolerated the procedure well. At this time the patient continued to remain sedation. Initial digital rectal examination was normal. Olympus CF 160 video colonoscope was then inserted into the rectum and gradually advanced to the cecum without any difficulty. Careful examination was performed as the scope was gradually being withdrawn. The prep was excellent. The cecum, appeared normal. In the ascending colon there were 3 small polyps measuring between 3 to 5 mm in size removed by cold biopsy. Ascending colon, transverse colon, descending colon, normal. In the sigmoid colon there was a 5 mm polyp removed by cold biopsy. Scattered sigmoid diverticulosis. Sigmoid colon and rectum appeared normal. Retroflexion was performed in the rectum and no lesions were noted. Patient tolerated the procedure well. Impression: 1. Upper endoscopy revealed moderate antral gastritis and small hiatal hernia 2. Colonnoscopy revealed: 3 mm and 4 mm x 2 ascending colon polyp status post cold biopsy 5 mm sigmoid colon polyp status post cold biopsy Scattered sigmoid diverticulosis Recommendations: Findings of this examination were discussed with the patient as well as as well as a family. She was advised to follow-up with the biopsy results If the biospy reveals adenoma, recommend rpt colonoscopy in 3 -5 yrs.
[2024-06-21 08:44] VITALS: RESP 16
[2024-06-21 08:55] VITALS: BP 114/81; PULSE 60
== END ==
LOC: ORWHC2ENDO 07:36
PROVIDERS: ATTEND Internal Medicine Gastroenterology
DX: K29.50 Unspecified chronic gastritis without bleeding (principal); D12.2 Benign neoplasm of ascending colon; D12.5 Benign neoplasm of sigmoid colon; K44.9 Diaphragmatic hernia without obstruction or gangrene; K57.30 Diverticulosis of large intestine without perforation or abscess without bleeding; D72.820 Lymphocytosis (symptomatic); D50.9 Iron deficiency anemia, unspecified; G47.33 Obstructive sleep apnea (adult) (pediatric); F32.A Depression, unspecified; Z99.89 Dependence on other enabling machines and devices; Z88.1 Allergy status to other antibiotic agents; Z90.10 Acquired absence of unspecified breast and nipple; Z89.619 Acquired absence of unspecified leg above knee; Z79.890 Hormone replacement therapy; Z79.899 Other long term (current) drug therapy
CPT/HCPCS: 88305; 45380; 43239; J2003; J2704

== ENCOUNTER → 2024-09-19 | Outpatient (CLI) | payer MEDICAID ==
[2024-09-19 08:54] VITALS: BP 132/82; RESP 17; TEMP 97.9
--- NOTE | 2024-09-19 09:36 | P.HPOB ---
History of Present Illness H&P Date: 09/19/24 Chief Complaint: The patient is here for her routine gynecologic exam. This is a 64-year-old -0-1-2 with an LMP of 2004. Patient is here to establish with this office. It has been about 2 years since her last pelvic exam. She previously saw Dr. Orozco for her gynecologic care. She is without gynecologic complaints and denies any postmenopausal bleeding. Review of Systems The patient's weight has been stable over the last year. She denies respiratory, cardiac, or G.I. problems. Past Medical History Past Medical History: Cancer Additional Past Medical History / Comment(s): Hx. left breast cancer 2004(lumpectomy,radiation,chemo), thyroid cancer 2004. Environmental allergies. 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 Cryotherapy of the cervix at age 40. BRCA negative per the pt. History of Any Multi-Drug Resistant Organisms: None Reported Past Surgical History: Breast Surgery, Section, Orthopedic Surgery, Tonsillectomy Additional Past Surgical History / Comment(s): Left breast lumpectomy, thyroidectomy L rotator cuff and L ankle . section x 2. Cryotherapy of the cervix at age 40. Past Anesthesia/Blood Transfusion Reactions: No Reported Reaction Past Psychological History: Anxiety, Depression Smoking Status: Former smoker Past Alcohol Use History: Rare (About 4 drinks per year.) Additional Past Alcohol Use History / Comment(s): Quit smoking in 2019. Past Drug Use History: None Reported Additional History: She is . She is not seeing anybody at this time and has not been sexually active recently. She retired from the [employer] center at [facility] in 2024. - Past Family History Mother Family Medical History: Cancer, Neurologic Disorder Additional Family Medical History / Comment(s): . Breast cancer and multiple sclerosis Father Family Medical History: Cancer Additional Family Medical History / Comment(s): . Chronic lymphocytic leukemia. Sister(s) Family Medical History: Cancer Additional Family Medical History / Comment(s): Breast cancer. Medications and Allergies Home Medications Medication Instructions Recorded Confirmed Type Cholecalciferol (Vitamin D3) 2,000 unit PO DAILY 03/01/18 06/21/24 History [Vitamin D3] Magnesium 200 mg PO DAILY 03/01/18 06/21/24 History Loratadine [Claritin] 10 mg PO DAILY 11/08/19 06/21/24 History ALPRAZolam [Xanax] 0.25 mg PO QAM 08/17/23 06/21/24 History Levothyroxine Sodium [Synthroid] 175 mcg PO MOTUTHFRSA 08/17/23 06/21/24 History Levothyroxine Sodium [Synthroid] 200 mcg PO SUWE 08/17/23 06/21/24 History Meloxicam [Mobic] 15 mg PO DAILY PRN 08/17/23 06/21/24 History buPROPion XL [Wellbutrin XL] 300 mg PO QAM 08/17/23 06/21/24 History Escitalopram [Lexapro] 5 mg PO QAM 06/19/24 06/21/24 History Multivitamins, Thera [Multivitamin 1 each PO DAILY 06/19/24 06/21/24 History (formulary)] Allergies Allergy/AdvReac Type Severity Reaction Status Date / Time levofloxacin [From Levaquin] AdvReac Confusion Verified 09/19/24 08:45 Exam Vital Signs Temp Resp BP Pulse Ox 09/19/24 08:46 97.9 F 17 132/82 96 Intake and Output 09/18/24 09/19/24 09/19/24 22:59 06:59 14:59 Other: Weight 108.862 kg Height 5 feet 6 inches, weight 240 pounds, BMI 38.7 This is a well-developed well-nourished white female who is alert and oriented times 3 in no acute distress. HEENT: Within normal limits. NECK: Supple without mass or thyromegaly. CHEST AND LUNGS: Clear to auscultation. HEART: Regular rate and rhythm. BREASTS: Are without mass or discharge. There is a dimpled area at the 1 o'clock position of the left breast consistent with her previous lumpectomy. AXILLARY EXAM: Negative for adenopathy. BACK: Negative for CVA tenderness. ABDOMEN: Soft, nontender, without palpable masses. PELVIC EXAM: Normal external genitalia with mild atrophy. Cervix and vagina appear normal with mild atrophy. There is no unusual discharge. There is no evidence of prolapse. The uterus is midposition, nongravid size and nontender. There are no palpable adnexal masses or tenderness. RECTAL EXAM: Rectovaginal exam is negative for mass or tenderness and is negative for occult blood. EXTREMITIES: Nontender. IMPRESSION: 1. 64-year-old menopausal female with normal gynecologic exam. 2. History of left breast cancer status post a lumpectomy, radiation, and chemotherapy. There is no evidence of recurrence on exam today. 3. Strong family history of breast cancer in her mother and sister. The patient states she did have genetic cancer testing and was BRCA negative per the patient. PLAN: 1. Pap smear cotest was performed. If this is negative will plan on discontinuing Pap smears. 2. Self breast awareness was discussed with the patient. We have also discussed symptoms associated with inflammatory breast cancer. 3. Screening mammogram will be due after 01/09/2025 and the order slip was given to the patient for this. 4. Osteoporosis prevention was discussed. I have stressed the importance of adequate calcium, vitamin D and regular exercise. Recommended amounts of calcium and vitamin D were also discussed. She had a normal bone density test in 2021. Will plan on repeating this after 5 years. 5. She was advised to return in one year for her annual well woman exam.
== END ==
LOC: WWCWWP 08:32
PROVIDERS: ATTEND Obstetrics & Gynecology
DX: Z01.419 Encounter for gynecological examination (general) (routine) without abnormal findings (principal); Z12.31 Encounter for screening mammogram for malignant neoplasm of breast; Z88.1 Allergy status to other antibiotic agents; Z87.891 Personal history of nicotine dependence; Z98.890 Other specified postprocedural states

== ENCOUNTER → 2024-10-04 | Outpatient (CLI) | payer MEDICAID ==
[2024-10-04 10:39] LABS: Appearance,Urine Clear (Clear); Bilirubin,Urine Negative (Negative); Blood,Urine Negative (Negative); Color,Urine Yellow; Glucose,Urine (UA) Negative (Negative); Ketones,Urine Trace (Negative); Leukocyte Esterase,Urine Moderate (Negative); Mucus,Urine Rare /hpf; Nitrite,Urine Negative (Negative); PH, Urine 5.5 (5.0-8.0); Protein,Urine Negative (Negative); RBC,Urine 1 /hpf (0-5); Specific Gravity,Urine 1.022 (1.001-1.035); Squamous Epithelial Cell,Urine 3 /hpf (0-4); Urobilinogen,Urine <2.0 mg/dL (<2.0); WBC,Urine 5 /hpf (0-5)
[2024-10-04 15:46] LABS: % Iron Saturation 16.26 (12.00-45.00); ALT 21 U/L (8-44); AST 26 U/L (13-35); Albumin/Globulin Ratio 1.82 Ratio (1.60-3.17); Alkaline Phosphatase 61 U/L (41-126); BUN/Creat Ratio 14.71 Ratio (12.00-20.00); Blood Urea Nitrogen 10.3 mg/dL (9.0-27.0); Calcium 9.3 mg/dL (8.7-10.3); Carbon Dioxide 23.9 mmol/L (21.6-31.8); Chloride 107 mmol/L (96-109); Chol/HDL Ratio 4.58 Ratio; Ferritin 17.7 ng/mL (10.0-291.0); Globulin 2.2 g/dL (1.6-3.3); Glucose 88 mg/dL (70-110); Iron 66 UG/DL (50-170); LDL Cholesterol,Calculated 116.9 mg/dL (0.0-131.0); Potassium 4.5 mmol/L (3.5-5.5); Sodium 140 mmol/L (135-145); Total Bilirubin 0.4 mg/dL (0.3-1.2); Total Iron Binding Capacity 406 UG/DL (228-460); Total Protein 6.2 g/dL (6.2-8.2)
[2024-10-04 15:59] LABS: Basophils # (A) 0.08 X 10*3/uL (0.00-0.10); Basophils % (A) 1.4 %; Eosinophils # (A) 0.31 X 10*3/uL (0.04-0.35); Eosinophils % (A) 5.4 %; HCT 42.4 % (37.2-46.3); HGB 13.2 g/dL (12.0-15.0); Lymphocytes # (A) 1.51 X 10*3/uL (0.90-5.00); Lymphocytes % (A) 26.2 %; MCH 26.9 pg (27.0-32.0); MCHC 31.1 g/dL (32.0-37.0); MCV 86.4 FL (80.0-97.0); Mean Platelet Volume 11.8 FL (9.5-12.2); Monocytes # (A) 0.64 X 10*3/uL (0.20-1.00); Monocytes % (A) 11.1 %; NRBC Per 100 WBC 0 X 10*3/uL (0.00-0.01); Neutrophils % (A) 55.6 %; Platelet Count 188 X 10*3/uL (140-440); RBC 4.91 X 10*6/uL (4.10-5.20); RDW 14.9 % (11.5-14.5); WBC 5.76 X 10*3/uL (4.50-10.00)
== END | disposition home or self-care (01) ==
LOC: LABWHC1 10:00
PROVIDERS: ATTEND Internal Medicine
DX: G47.33 Obstructive sleep apnea (adult) (pediatric) (principal); E03.9 Hypothyroidism, unspecified; E78.2 Mixed hyperlipidemia; K57.30 Diverticulosis of large intestine without perforation or abscess without bleeding; D50.9 Iron deficiency anemia, unspecified; R35.0 Frequency of micturition
CPT/HCPCS: 36415; 80053; 80061; 81001; 82306; 82728; 83036; 83540; 83550; 84443; 85025